=== PATIENT | female | born 1930 | race African-American/Black ===

== ENCOUNTER 2018-03-15 05:35 | Inpatient (IN) ==
[2018-03-15] MEDS ORDERED: ONDANSETRON 4 MG/2 ML VIAL ONE (06:03)
[2018-03-15] MEDS ORDERED: ONDANSETRON 4 MG/2 ML VIAL IV STA (06:07)
[2018-03-15] MEDS ORDERED: PANTOPRAZOLE 40 MG VIAL IV STA (06:19)
[2018-03-15] MEDS ORDERED: ONDANSETRON 4 MG/2 ML VIAL IV PRN (06:19)
[2018-03-15] MEDS ORDERED: PANTOPRAZOLE 40 MG VIAL IV ONE (06:22)
[2018-03-15 06:26] LABS: Basophils % 0.5 % (0.0-0.8); Eosinophils # 0.1 10*3/uL (0.0-0.87); Eosinophils % 1.1 % (0.00-10.9); Hematocrit 34.3 VOL% (35.7-47.0); Hemoglobin 11.3 GM/DL (12.0-16.0); Immature Granulocytes % 0.3 %; Immature Granulocytes Absolute 0.03 #; Lymphocytes # 1.4 10*3/uL (1.4-4.0); Lymphocytes % 15.6 % (21.3-54.2); Mean Corpuscular HGB Conc 32.9 GM/DL (32-36); Mean Corpuscular Hemoglobin 32 PG (27-34); Mean Corpuscular Volume 97.4 FL (87-102); Mean Platelet Volume 10.6 FL (9.6-12.0); Monocytes # 0.4 10*3/uL (0.11-0.8); Monocytes % 4.8 % (1.7-12.7); Neutrophils # 6.8 10*3/uL (1.4-7.4); Neutrophils % 77.7 % (38.7-73.9); PT Patient Result 10.3 SECS; Partial Thromboplastin Time 25.9 SECS (0-40); Platelet Count 122 T/CUMM (130-400); Red Blood Count 3.52 MC/CUMM (3.8-5.5); Red Cell Distribution Width 13.1 % (9.3-17.3); White Blood Count 8.7 T/CUMM (4-12)
[2018-03-15 06:36] LABS: Alanine Aminotransferase 13 U/L (13-56); Albumin 3.6 G/DL (3.4-5.0); Alkaline Phosphatase 83 U/L (45-117); Aspartate Amino Transferase 9 U/L (0-37); Blood Urea Nitrogen 26 MG/DL (7-18); Calcium 9.2 MG/DL (8.5-10.1); Glucose 173 MG/DL (74-106); Osmolality,Calculated 283.7 MOS/KG (273-304); Potassium 3.4 MMOL/L (3.5-5.1); Sodium 138 MMOL/L (136-145); Troponin I Only < 0.015 NG/ML (0.00-0.045)
[2018-03-15] MEDS ORDERED: LEVOFLOXACIN INJ 500 MG in PREMIX 1 EACH IV ONE (11:30)
[2018-03-15] MEDS: SODIUM CHLORIDE 0.9% 1,000 ML IV SCH (11:43)
[2018-03-15] MEDS: metroNIDAZOLE 500 MG TABLET PO SCH ×2 (11:44→20:33)
[2018-03-15 12:02] LABS: Apearance,Urine Slightly Hazy (Clear); Bacteria,Urine Occasional /HPF (Few); Bilirubin,Urine Negative (Negative); Blood, Urine Small mg/dL (Negative); Glucose,Urine (UA) Negative (Negative); Hyaline Casts,Urine 4 /LPF (0-3); Ketones,Urine Negative (Negative); Nitrite,Urine Negative (Negative); Protein,Urine Negative; RBC,Urine 3 /HPF (0-4); Squamous Epithelial Cell,Urine Occasional /HPF (0-10); Uric Acid Crystals,Urine Occasional /HPF (<1); Urine Color Yellow (Yellow); Urine Specific Gravity 1.016 (1.001-1.035); Urine Urobilinogen < 2.0 EU/DL (0.2-1.0); WBC,Urine 3 /HPF (0-6)
[2018-03-15] MEDS: ACETAMINOPHEN 325 MG TABLET PO PRN (12:58)
[2018-03-15] MEDS: CITALOPRAM 20 MG TABLET PO SCH (20:33)
[2018-03-15] MEDS: ZALEPLON 5 MG CAPSULE PO SCH (20:33)
[2018-03-15] MEDS: ALPRAZolam 0.5 MG TABLET PO SCH (20:33)
[2018-03-15] MEDS: DOCUSATE SODIUM 100 MG CAPSULE PO SCH (20:33)
[2018-03-15] MEDS: SODIUM CHLOR 0.45% KCL 20 MEQ 20 MEQ/1,000 ML BAG IV SCH (20:39)
[2018-03-15] MEDS: HYDROmorphone 2 MG/1 ML VIAL IV PRN (20:40)
[2018-03-15] MEDS: INSULIN LISPRO 100 UNIT/ML SUBCUT SCH (21:00)
[2018-03-16] MEDS: HYDROmorphone 2 MG/1 ML VIAL IV PRN ×2 (00:40→09:47)
[2018-03-16] MEDS: SODIUM CHLORIDE 0.9% 1,000 ML IV SCH (02:14)
[2018-03-16] MEDS: ONDANSETRON 4 MG/2 ML VIAL IV PRN ×3 (02:18→23:57)
[2018-03-16] MEDS: metroNIDAZOLE 500 MG TABLET PO SCH ×3 (04:00→18:43)
[2018-03-16 05:56] LABS: Basophils % 0.4 % (0.0-0.8); Eosinophils % 0.3 % (0.00-10.9); Hematocrit 30.1 VOL% (35.7-47.0); Hemoglobin 9.9 GM/DL (12.0-16.0); Immature Granulocytes % 0.3 %; Immature Granulocytes Absolute 0.02 #; Lymphocytes # 0.9 10*3/uL (1.4-4.0); Lymphocytes % 13.7 % (21.3-54.2); Mean Corpuscular HGB Conc 32.9 GM/DL (32-36); Mean Corpuscular Hemoglobin 32 PG (27-34); Mean Platelet Volume 10.8 FL (9.6-12.0); Monocytes # 0.4 10*3/uL (0.11-0.8); Monocytes % 5.4 % (1.7-12.7); Neutrophils # 5.4 10*3/uL (1.4-7.4); Neutrophils % 79.9 % (38.7-73.9); Platelet Count 104 T/CUMM (130-400); Red Blood Count 3.07 MC/CUMM (3.8-5.5); Red Cell Distribution Width 13.1 % (9.3-17.3); White Blood Count 6.7 T/CUMM (4-12)
[2018-03-16 06:26] LABS: Albumin 3.3 G/DL (3.4-5.0); Bilirubin,Total 0.9 MG/DL (0.2-1.0); Calcium 8.4 MG/DL (8.5-10.1); Osmolality,Calculated 279.5 MOS/KG (273-304); Potassium 4.1 MMOL/L (3.5-5.1); Risk Ratio 3.47; Thyroid Stimulating Hormone 1.56 uIU/ml (0.358-3.74)
[2018-03-16 07:01] LABS: Sedimentation Rate-Westergren 32 MM/HR (0-30)
[2018-03-16] MEDS: SODIUM CHLOR 0.45% KCL 20 MEQ 20 MEQ/1,000 ML BAG IV SCH (07:03)
[2018-03-16] MEDS ORDERED: LEVOFLOXACIN INJ 250 MG in PREMIX 1 EACH IV SCH (09:00)
[2018-03-16] MEDS: LEVOFLOXACIN INJ 500 MG in PREMIX 1 EACH IV SCH (09:50)
[2018-03-16] MEDS: OLMESARTAN 20 MG TABLET PO SCH (09:50)
[2018-03-16] MEDS: hydroCHLOROthiazide 12.5 MG CAPSULE PO SCH (09:50)
[2018-03-16] MEDS: PANTOPRAZOLE 40 MG TABLET PO SCH (09:50)
[2018-03-16] MEDS: DOCUSATE SODIUM 100 MG CAPSULE PO SCH ×2 (09:50→20:38)
[2018-03-16] MEDS: INSULIN LISPRO 100 UNIT/ML SUBCUT SCH ×4 (10:01→22:06)
[2018-03-16] MEDS: ALPRAZolam 0.5 MG TABLET PO SCH ×2 (10:05→20:38)
[2018-03-16] MEDS: ASPIRIN EC 81 MG TABLET PO SCH (14:45)
[2018-03-16] MEDS: MAGNESIUM SULF IV SCH (17:08)
[2018-03-16] MEDS: POTASSIUM CHLORIDE IV SCH (17:08)
[2018-03-16] MEDS: [UNRECOGNIZED DRUG - OTHER] IV SCH (17:08)
[2018-03-16] MEDS ORDERED: CLINDAMYCIN INJ 900 MG in PREMIX 1 EACH IV ONE (17:23)
[2018-03-16] MEDS: ZALEPLON 5 MG CAPSULE PO SCH (20:38)
[2018-03-16] MEDS: CITALOPRAM 20 MG TABLET PO SCH (20:38)
[2018-03-17] MEDS: metroNIDAZOLE 500 MG TABLET PO SCH ×3 (02:58→18:49)
[2018-03-17] MEDS: POTASSIUM CHLORIDE IV SCH ×3 (03:19→20:57)
[2018-03-17] MEDS: [UNRECOGNIZED DRUG - OTHER] IV SCH ×3 (03:19→20:57)
[2018-03-17] MEDS: MAGNESIUM SULF IV SCH ×3 (03:19→20:57)
[2018-03-17] MEDS: ONDANSETRON 4 MG/2 ML VIAL IV PRN ×3 (04:02→20:58)
[2018-03-17] MEDS ORDERED: FAMOTIDINE 20 MG TABLET PO ONE (05:39)
[2018-03-17 05:42] LABS: Basophils % 0.3 % (0.0-0.8); Eosinophils % 0.1 % (0.00-10.9); Hematocrit 30.7 VOL% (35.7-47.0); Hemoglobin 10.4 GM/DL (12.0-16.0); Immature Granulocytes % 0.4 %; Immature Granulocytes Absolute 0.03 #; Lymphocytes # 0.8 10*3/uL (1.4-4.0); Mean Corpuscular HGB Conc 33.9 GM/DL (32-36); Mean Corpuscular Hemoglobin 32 PG (27-34); Mean Corpuscular Volume 93.3 FL (87-102); Mean Platelet Volume 11.5 FL (9.6-12.0); Monocytes # 0.4 10*3/uL (0.11-0.8); Monocytes % 4.4 % (1.7-12.7); Neutrophils # 6.7 10*3/uL (1.4-7.4); Neutrophils % 84.8 % (38.7-73.9); Platelet Count 118 T/CUMM (130-400); Red Blood Count 3.29 MC/CUMM (3.8-5.5); White Blood Count 7.9 T/CUMM (4-12)
[2018-03-17] MEDS ORDERED: DIAZEPAM 5 MG TABLET PO ONE (06:00)
[2018-03-17 06:11] LABS: Calcium 8.4 MG/DL (8.5-10.1); Osmolality,Calculated 272.1 MOS/KG (273-304); Potassium 4.7 MMOL/L (3.5-5.1)
[2018-03-17] MEDS: INSULIN LISPRO 100 UNIT/ML SUBCUT SCH ×4 (08:08→20:53)
[2018-03-17] MEDS: LEVOFLOXACIN INJ 500 MG in PREMIX 1 EACH IV SCH (08:35)
[2018-03-17] MEDS: CARVEDILOL 3.125 MG TABLET PO SCH ×2 (08:37→18:49)
[2018-03-17] MEDS: hydroCHLOROthiazide 12.5 MG CAPSULE PO SCH (08:37)
[2018-03-17] MEDS: OLMESARTAN 20 MG TABLET PO SCH (08:37)
[2018-03-17] MEDS ORDERED: CLINDAMYCIN INJ 900 MG in PREMIX 1 EACH IV ONE (09:00)
[2018-03-17] MEDS: LACTATED RINGERS 1,000 ML IV SCH ×2 (10:49→14:10)
[2018-03-17] MEDS ORDERED: LIDOCAINE 1%/EPI INJ 20 ML VIAL ONE (11:33)
[2018-03-17] MEDS ORDERED: TISSUE ADHESIVE 1 EACH APPLICATOR TOP ONE (11:34)
[2018-03-17] MEDS: ASPIRIN EC 81 MG TABLET PO SCH (11:52)
[2018-03-17] MEDS: ALPRAZolam 0.5 MG TABLET PO SCH ×2 (11:53→20:52)
[2018-03-17] MEDS: DOCUSATE SODIUM 100 MG CAPSULE PO SCH ×2 (11:53→20:52)
[2018-03-17] MEDS: PANTOPRAZOLE 40 MG TABLET PO SCH (11:53)
[2018-03-17] MEDS ORDERED: TRIAMCINOLONE ACETONIDE 40 MG/1 ML VIAL ONE (12:17)
[2018-03-17] MEDS ORDERED: PROPOFOL 200 MG/20 ML VIAL IV ONE (13:45)
[2018-03-17] MEDS ORDERED: SEVOFLURANE 1 UNIT/15 MINUTE INH ONE (13:46)
[2018-03-17] MEDS ORDERED: NEOSTIGMINE 10 MG/10 ML VIAL ONE (13:47)
[2018-03-17] MEDS ORDERED: fentaNYL 100 MCG/2 ML VIAL ONE (13:47)
[2018-03-17] MEDS ORDERED: ONDANSETRON 4 MG/2 ML VIAL ONE ×2 (13:47→13:57)
[2018-03-17] MEDS ORDERED: SODIUM CHLORIDE 0.9% 1,000 ML IV ONE (13:47)
[2018-03-17] MEDS ORDERED: KETOROLAC 30 MG/1 ML VIAL ONE (13:47)
[2018-03-17] MEDS ORDERED: ROCURONIUM 100 MG/10 ML VIAL IV ONE (13:47)
[2018-03-17] MEDS ORDERED: GLYCOPYRROLATE 0.4 MG/2 ML VIAL ONE (13:47)
[2018-03-17] MEDS ORDERED: PHENYLEPHRINE 10 MG/1 ML VIAL IV ONE (13:47)
[2018-03-17] MEDS ORDERED: ONDANSETRON 4 MG/2 ML VIAL IV PRN (13:55)
[2018-03-17] MEDS ORDERED: HYDROmorphone 2 MG/1 ML VIAL ONE (13:57)
[2018-03-17] MEDS: HYDROmorphone 2 MG/1 ML VIAL IV PRN ×3 (14:00→14:20)
[2018-03-17] MEDS: ZALEPLON 5 MG CAPSULE PO SCH (20:52)
[2018-03-17] MEDS: CITALOPRAM 20 MG TABLET PO SCH (20:52)
[2018-03-18 05:47] LABS: Basophils % 0.1 % (0.0-0.8); Hematocrit 32.3 VOL% (35.7-47.0); Hemoglobin 10.7 GM/DL (12.0-16.0); Immature Granulocytes % 0.6 %; Immature Granulocytes Absolute 0.06 #; Lymphocytes # 0.5 10*3/uL (1.4-4.0); Lymphocytes % 4.5 % (21.3-54.2); Mean Corpuscular HGB Conc 33.1 GM/DL (32-36); Mean Corpuscular Hemoglobin 32 PG (27-34); Mean Corpuscular Volume 95.8 FL (87-102); Mean Platelet Volume 11.6 FL (9.6-12.0); Monocytes # 0.6 10*3/uL (0.11-0.8); Monocytes % 5.7 % (1.7-12.7); Neutrophils # 9.5 10*3/uL (1.4-7.4); Neutrophils % 89.1 % (38.7-73.9); Platelet Count 123 T/CUMM (130-400); Red Blood Count 3.37 MC/CUMM (3.8-5.5); Red Cell Distribution Width 13.1 % (9.3-17.3); White Blood Count 10.7 T/CUMM (4-12)
[2018-03-18 06:12] LABS: Calcium 8.6 MG/DL (8.5-10.1); Osmolality,Calculated 262.8 MOS/KG (273-304); Potassium 5.1 MMOL/L (3.5-5.1)
[2018-03-18 06:25] LABS: Lymphocytes 3 % (20-55); Segmented Neutrophils 93 % (50-85); Total Cells Counted 100
[2018-03-18 06:26] LABS: Platelet Estimate Decreased; Polychromasia Slight
[2018-03-18] MEDS: [UNRECOGNIZED DRUG - OTHER] IV SCH (06:28)
[2018-03-18] MEDS: POTASSIUM CHLORIDE IV SCH (06:28)
[2018-03-18] MEDS: MAGNESIUM SULF IV SCH (06:28)
[2018-03-18] MEDS: metroNIDAZOLE 500 MG TABLET PO SCH (06:28)
[2018-03-18] MEDS: INSULIN LISPRO 100 UNIT/ML SUBCUT SCH ×3 (07:34→21:18)
[2018-03-18] MEDS: ONDANSETRON 4 MG/2 ML VIAL IV PRN ×2 (08:07→20:42)
[2018-03-18] MEDS: CARVEDILOL 3.125 MG TABLET PO SCH ×2 (08:09→16:44)
[2018-03-18] MEDS: PANTOPRAZOLE 40 MG TABLET PO SCH (08:09)
[2018-03-18] MEDS: hydroCHLOROthiazide 12.5 MG CAPSULE PO SCH (08:09)
[2018-03-18] MEDS: DOCUSATE SODIUM 100 MG CAPSULE PO SCH ×2 (08:09→21:18)
[2018-03-18] MEDS: OLMESARTAN 20 MG TABLET PO SCH (08:09)
[2018-03-18] MEDS: ALPRAZolam 0.5 MG TABLET PO SCH ×2 (08:09→21:18)
[2018-03-18] MEDS: ASPIRIN EC 81 MG TABLET PO SCH (08:09)
[2018-03-18] MEDS: LEVOFLOXACIN INJ 500 MG in PREMIX 1 EACH IV SCH (16:44)
[2018-03-18] MEDS: SODIUM CHLORIDE 0.9% 1,000 ML IV SCH (18:22)
[2018-03-18] MEDS: CITALOPRAM 20 MG TABLET PO SCH (21:18)
[2018-03-18] MEDS: ZALEPLON 5 MG CAPSULE PO SCH (21:18)
[2018-03-18] MEDS: HYDROmorphone 2 MG/1 ML VIAL IV PRN (23:27)
[2018-03-19] MEDS: SODIUM CHLORIDE 0.9% 1,000 ML IV SCH ×3 (02:48→21:42)
[2018-03-19 05:23] LABS: Basophils % 0.1 % (0.0-0.8); Eosinophils % 0.1 % (0.00-10.9); Hematocrit 29.6 VOL% (35.7-47.0); Hemoglobin 10.5 GM/DL (12.0-16.0); Immature Granulocytes % 0.4 %; Immature Granulocytes Absolute 0.04 #; Lymphocytes # 0.8 10*3/uL (1.4-4.0); Lymphocytes % 6.9 % (21.3-54.2); Mean Corpuscular HGB Conc 35.5 GM/DL (32-36); Mean Corpuscular Hemoglobin 33 PG (27-34); Mean Corpuscular Volume 92.2 FL (87-102); Mean Platelet Volume 11.1 FL (9.6-12.0); Monocytes # 0.8 10*3/uL (0.11-0.8); Monocytes % 7.1 % (1.7-12.7); Neutrophils # 9.4 10*3/uL (1.4-7.4); Neutrophils % 85.4 % (38.7-73.9); Platelet Count 129 T/CUMM (130-400); Red Blood Count 3.21 MC/CUMM (3.8-5.5); White Blood Count 11.1 T/CUMM (4-12)
[2018-03-19 05:58] LABS: Calcium 8.1 MG/DL (8.5-10.1); Osmolality,Calculated 262.1 MOS/KG (273-304); Potassium 5.2 MMOL/L (3.5-5.1)
[2018-03-19] MEDS: ALPRAZolam 0.5 MG TABLET PO SCH ×2 (08:26→21:04)
[2018-03-19] MEDS: hydroCHLOROthiazide 12.5 MG CAPSULE PO SCH (08:26)
[2018-03-19] MEDS: DOCUSATE SODIUM 100 MG CAPSULE PO SCH ×2 (08:26→21:04)
[2018-03-19] MEDS: OLMESARTAN 20 MG TABLET PO SCH (08:26)
[2018-03-19] MEDS: LEVOFLOXACIN INJ 500 MG in PREMIX 1 EACH IV SCH (08:26)
[2018-03-19] MEDS: PANTOPRAZOLE 40 MG TABLET PO SCH (08:26)
[2018-03-19] MEDS: ASPIRIN EC 81 MG TABLET PO SCH (08:26)
[2018-03-19] MEDS: INSULIN LISPRO 100 UNIT/ML SUBCUT SCH ×4 (08:26→21:04)
[2018-03-19] MEDS: CARVEDILOL 3.125 MG TABLET PO SCH ×2 (08:26→16:10)
[2018-03-19] MEDS: CITALOPRAM 20 MG TABLET PO SCH (21:04)
[2018-03-19] MEDS: ACETAMINOPHEN 325 MG TABLET PO PRN (21:04)
[2018-03-19] MEDS: ZALEPLON 5 MG CAPSULE PO SCH (21:04)
[2018-03-19] MEDS: ONDANSETRON 4 MG/2 ML VIAL IV PRN (21:09)
[2018-03-20] MEDS: SODIUM CHLORIDE 0.9% 1,000 ML IV SCH ×2 (05:42→17:10)
[2018-03-20 06:50] LABS: Basophils % 0.1 % (0.0-0.8); Eosinophils % 0.5 % (0.00-10.9); Hematocrit 29.7 VOL% (35.7-47.0); Hemoglobin 10.4 GM/DL (12.0-16.0); Immature Granulocytes % 0.6 %; Immature Granulocytes Absolute 0.05 #; Lymphocytes # 0.7 10*3/uL (1.4-4.0); Lymphocytes % 8.5 % (21.3-54.2); Mean Corpuscular Hemoglobin 32 PG (27-34); Mean Corpuscular Volume 92.5 FL (87-102); Mean Platelet Volume 11.4 FL (9.6-12.0); Monocytes # 0.6 10*3/uL (0.11-0.8); Monocytes % 6.7 % (1.7-12.7); Neutrophils # 7.1 10*3/uL (1.4-7.4); Neutrophils % 83.6 % (38.7-73.9); Platelet Count 149 T/CUMM (130-400); Red Blood Count 3.21 MC/CUMM (3.8-5.5); Red Cell Distribution Width 13.3 % (9.3-17.3); White Blood Count 8.5 T/CUMM (4-12)
[2018-03-20 07:23] LABS: Calcium 8.1 MG/DL (8.5-10.1); Osmolality,Calculated 267.5 MOS/KG (273-304); Potassium 4.5 MMOL/L (3.5-5.1)
[2018-03-20] MEDS: INSULIN LISPRO 100 UNIT/ML SUBCUT SCH ×4 (08:05→21:31)
[2018-03-20] MEDS: CARVEDILOL 3.125 MG TABLET PO SCH ×2 (08:58→16:46)
[2018-03-20] MEDS: DOCUSATE SODIUM 100 MG CAPSULE PO SCH ×2 (08:58→21:31)
[2018-03-20] MEDS: LEVOFLOXACIN INJ 500 MG in PREMIX 1 EACH IV SCH (08:59)
[2018-03-20] MEDS: OLMESARTAN 20 MG TABLET PO SCH (08:59)
[2018-03-20] MEDS: hydroCHLOROthiazide 12.5 MG CAPSULE PO SCH (08:59)
[2018-03-20] MEDS: ASPIRIN EC 81 MG TABLET PO SCH (08:59)
[2018-03-20] MEDS: PANTOPRAZOLE 40 MG TABLET PO SCH (08:59)
[2018-03-20] MEDS: ALPRAZolam 0.5 MG TABLET PO SCH ×2 (08:59→21:31)
[2018-03-20] MEDS: ONDANSETRON 4 MG/2 ML VIAL IV PRN (15:48)
[2018-03-20] MEDS: CITALOPRAM 20 MG TABLET PO SCH (21:31)
[2018-03-20] MEDS: ZALEPLON 5 MG CAPSULE PO SCH (21:31)
[2018-03-21] MEDS: SODIUM CHLORIDE 0.9% 1,000 ML IV SCH ×2 (01:10→20:57)
[2018-03-21 05:04] LABS: Basophils % 0.1 % (0.0-0.8); Eosinophils # 0.1 10*3/uL (0.0-0.87); Eosinophils % 0.8 % (0.00-10.9); Hematocrit 28.8 VOL% (35.7-47.0); Hemoglobin 9.7 GM/DL (12.0-16.0); Immature Granulocytes % 0.4 %; Immature Granulocytes Absolute 0.03 #; Lymphocytes # 0.9 10*3/uL (1.4-4.0); Mean Corpuscular HGB Conc 33.7 GM/DL (32-36); Mean Corpuscular Hemoglobin 32 PG (27-34); Mean Corpuscular Volume 94.7 FL (87-102); Mean Platelet Volume 10.9 FL (9.6-12.0); Monocytes # 0.5 10*3/uL (0.11-0.8); Monocytes % 7.1 % (1.7-12.7); Neutrophils # 6.1 10*3/uL (1.4-7.4); Neutrophils % 79.6 % (38.7-73.9); Platelet Count 143 T/CUMM (130-400); Red Blood Count 3.04 MC/CUMM (3.8-5.5); Red Cell Distribution Width 13.5 % (9.3-17.3); White Blood Count 7.6 T/CUMM (4-12)
[2018-03-21 05:38] LABS: Calcium 8.2 MG/DL (8.5-10.1); Osmolality,Calculated 271.1 MOS/KG (273-304); Potassium 4.3 MMOL/L (3.5-5.1)
[2018-03-21] MEDS: hydroCHLOROthiazide 12.5 MG CAPSULE PO SCH (09:39)
[2018-03-21] MEDS: CARVEDILOL 3.125 MG TABLET PO SCH ×2 (09:39→17:12)
[2018-03-21] MEDS: DOCUSATE SODIUM 100 MG CAPSULE PO SCH ×2 (09:39→20:55)
[2018-03-21] MEDS: INSULIN LISPRO 100 UNIT/ML SUBCUT SCH ×4 (09:39→21:07)
[2018-03-21] MEDS: OLMESARTAN 20 MG TABLET PO SCH (09:39)
[2018-03-21] MEDS: ALPRAZolam 0.5 MG TABLET PO SCH ×2 (09:39→20:55)
[2018-03-21] MEDS: LEVOFLOXACIN INJ 500 MG in PREMIX 1 EACH IV SCH (09:40)
[2018-03-21] MEDS: PANTOPRAZOLE 40 MG TABLET PO SCH (09:40)
[2018-03-21] MEDS: ASPIRIN EC 81 MG TABLET PO SCH (09:40)
[2018-03-21] MEDS: CITALOPRAM 20 MG TABLET PO SCH (20:55)
[2018-03-21] MEDS: ZALEPLON 5 MG CAPSULE PO SCH (20:55)
[2018-03-21] MEDS ORDERED: ENOXAPARIN 40 MG/0.4 ML SYRINGE SUBCUT SCH (21:00)
[2018-03-22] MEDS: OLMESARTAN 20 MG TABLET PO SCH (09:54)
[2018-03-22] MEDS: hydroCHLOROthiazide 12.5 MG CAPSULE PO SCH (09:54)
[2018-03-22] MEDS: CARVEDILOL 3.125 MG TABLET PO SCH (09:54)
[2018-03-22] MEDS: ASPIRIN EC 81 MG TABLET PO SCH (09:54)
[2018-03-22] MEDS: PANTOPRAZOLE 40 MG TABLET PO SCH (09:54)
[2018-03-22] MEDS: ALPRAZolam 0.5 MG TABLET PO SCH (09:54)
[2018-03-22] MEDS: DOCUSATE SODIUM 100 MG CAPSULE PO SCH (09:54)
[2018-03-22] MEDS: LEVOFLOXACIN INJ 500 MG in PREMIX 1 EACH IV SCH (09:55)
[2018-03-22 12:29] VITALS: BP 173/86
== END 2018-03-22 13:50 | disposition home health service (06) | DRG 418 ==
LOC: EDUNIT# → N.ED 05:35 → N.EDINP 10:02 → N.2E 10:17
PROVIDERS: ADMIT Family Medicine; ATTEND Family Medicine
PROC: LAPCHOL (2018-03-17 11:45)

== ENCOUNTER 2018-04-06 12:53 | Inpatient (IN) ==
[2018-04-06] MEDS ORDERED: SODIUM CHLORIDE 0.9% 1,000 ML IV STA (13:31)
[2018-04-06] MEDS ORDERED: ONDANSETRON 4 MG/2 ML VIAL IV STA ×2 (13:31→14:05)
[2018-04-06 13:45] LABS: White Blood Count 6.1 T/CUMM (4-12)
[2018-04-06 13:46] LABS: Basophils % 0.3 % (0.0-0.8); Eosinophils # 0.1 10*3/uL (0.0-0.87); Hematocrit 34.8 VOL% (35.7-47.0); Hemoglobin 11.4 GM/DL (12.0-16.0); Immature Granulocytes % 0.3 %; Immature Granulocytes Absolute 0.02 #; Lymphocytes # 1.4 10*3/uL (1.4-4.0); Lymphocytes % 22.5 % (21.3-54.2); Mean Corpuscular HGB Conc 32.8 GM/DL (32-36); Mean Corpuscular Hemoglobin 32 PG (27-34); Mean Corpuscular Volume 98.6 FL (87-102); Mean Platelet Volume 10.2 FL (9.6-12.0); Monocytes # 0.4 10*3/uL (0.11-0.8); Monocytes % 6.1 % (1.7-12.7); Neutrophils # 4.2 10*3/uL (1.4-7.4); Neutrophils % 68.8 % (38.7-73.9); Platelet Count 136 T/CUMM (130-400); Red Blood Count 3.53 MC/CUMM (3.8-5.5); Red Cell Distribution Width 14.9 % (9.3-17.3)
[2018-04-06] MEDS ORDERED: fentaNYL 100 MCG/2 ML VIAL IV STA (14:05)
[2018-04-06 14:07] LABS: Alanine Aminotransferase 16 U/L (13-56); Albumin 3.7 G/DL (3.4-5.0); Alkaline Phosphatase 69 U/L (45-117); Amylase 39 U/L (25-115); Aspartate Amino Transferase 15 U/L (0-37); Blood Urea Nitrogen 15 MG/DL (7-18); Calcium 9.7 MG/DL (8.5-10.1); Glucose 106 MG/DL (74-106); Osmolality,Calculated 279.4 MOS/KG (273-304); Potassium 3.8 MMOL/L (3.5-5.1); Sodium 140 MMOL/L (136-145); Total Protein 7.2 G/DL (6.4-8.3); Troponin I Only < 0.015 NG/ML (0.00-0.045)
[2018-04-06] MEDS ORDERED: fentaNYL 100 MCG/2 ML VIAL ONE (14:07)
[2018-04-06 15:00] LABS: Apearance,Urine CLEAR (Clear); Bilirubin,Urine Negative (Negative); Blood, Urine Negative (Negative); Glucose,Urine (UA) Negative (Negative); Ketones,Urine Negative (Negative); Nitrite,Urine Negative (Negative); Protein,Urine Negative; RBC,Urine 2 /HPF (0-4); Squamous Epithelial Cell,Urine Occasional /HPF (0-10); Urine Color Yellow (Yellow); Urine Specific Gravity 1.011 (1.001-1.035); Urine Urobilinogen < 2.0 EU/DL (0.2-1.0); WBC,Urine 1 /HPF (0-6)
[2018-04-06] MEDS ORDERED: methylPREDNISolone SOD SUC 125 MG/2 ML VIAL IV STA (15:47)
[2018-04-06] MEDS ORDERED: diphenhydrAMINE 50 MG/1 ML VIAL IV STA (15:47)
[2018-04-06] MEDS ORDERED: KETOROLAC 30 MG/1 ML VIAL IV STA (17:30)
[2018-04-06 22:06] LABS: Lactic Acid 3.7 MMOL/L (0.4-2.0)
[2018-04-06] MEDS ORDERED: ZALEPLON 5 MG CAPSULE PO PRN (22:16)
[2018-04-06] MEDS ORDERED: ONDANSETRON 4 MG/2 ML VIAL IV PRN (22:16)
[2018-04-06] MEDS ORDERED: MORPHINE 4 MG/1 ML VIAL IV PRN (22:16)
[2018-04-06] MEDS ORDERED: LACTULOSE 20 GM/30 ML UDCUP PO PRN (22:16)
[2018-04-06] MEDS ORDERED: ACETAMINOPHEN 325 MG TABLET PO PRN (22:16)
[2018-04-06] MEDS: ALPRAZolam 0.5 MG TABLET PO SCH (22:37)
[2018-04-06] MEDS: DOCUSATE SODIUM 100 MG CAPSULE PO SCH (22:37)
[2018-04-06] MEDS: SODIUM CHLORIDE 0.9% 1,000 ML IV SCH (22:42)
[2018-04-07 05:59] LABS: Hematocrit 32.3 VOL% (35.7-47.0); Hemoglobin 10.8 GM/DL (12.0-16.0); Immature Granulocytes % 0.6 %; Immature Granulocytes Absolute 0.04 #; Lymphocytes # 0.5 10*3/uL (1.4-4.0); Lymphocytes % 7.4 % (21.3-54.2); Mean Corpuscular HGB Conc 33.4 GM/DL (32-36); Mean Corpuscular Hemoglobin 33 PG (27-34); Mean Corpuscular Volume 98.8 FL (87-102); Mean Platelet Volume 10.7 FL (9.6-12.0); Monocytes # 0.1 10*3/uL (0.11-0.8); Monocytes % 1.7 % (1.7-12.7); Neutrophils # 5.8 10*3/uL (1.4-7.4); Neutrophils % 90.3 % (38.7-73.9); Platelet Count 144 T/CUMM (130-400); Red Blood Count 3.27 MC/CUMM (3.8-5.5); Red Cell Distribution Width 14.8 % (9.3-17.3); White Blood Count 6.4 T/CUMM (4-12)
[2018-04-07 06:45] LABS: Albumin 3.2 G/DL (3.4-5.0); Bilirubin,Total 1.6 MG/DL (0.2-1.0); Calcium 9.1 MG/DL (8.5-10.1); Osmolality,Calculated 287.3 MOS/KG (273-304); Potassium 4.4 MMOL/L (3.5-5.1); Risk Ratio 3.27; Total Protein 6.4 G/DL (6.4-8.3); VLDL CHOLESTEROL 9.2 MG/DL
[2018-04-07] MEDS: DOCUSATE SODIUM 100 MG CAPSULE PO SCH ×2 (08:51→22:50)
[2018-04-07] MEDS: hydroCHLOROthiazide 12.5 MG CAPSULE PO SCH (08:51)
[2018-04-07] MEDS: ALPRAZolam 0.5 MG TABLET PO SCH ×2 (08:51→22:49)
[2018-04-07] MEDS: MELOXICAM 7.5 MG TABLET PO SCH (08:51)
[2018-04-07] MEDS: FUROSEMIDE 40 MG TABLET PO SCH (08:51)
[2018-04-07] MEDS: PANTOPRAZOLE 40 MG TABLET PO SCH (08:51)
[2018-04-07] MEDS: POTASSIUM CHLORIDE 10 MEQ TABLET PO SCH (08:51)
[2018-04-07] MEDS: ASPIRIN EC 81 MG TABLET PO SCH (08:51)
[2018-04-07] MEDS: OLMESARTAN 20 MG TABLET PO SCH (08:51)
[2018-04-07] MEDS: INSULIN LISPRO 100 UNIT/ML SUBCUT SCH ×3 (12:55→22:32)
[2018-04-07] MEDS: SODIUM CHLORIDE 0.9% 1,000 ML IV SCH (16:35)
[2018-04-08 06:19] LABS: Basophils % 0.4 % (0.0-0.8); Eosinophils # 0.1 10*3/uL (0.0-0.87); Eosinophils % 1.4 % (0.00-10.9); Hematocrit 29.1 VOL% (35.7-47.0); Hemoglobin 9.3 GM/DL (12.0-16.0); Immature Granulocytes % 0.5 %; Immature Granulocytes Absolute 0.04 #; Lymphocytes # 2.3 10*3/uL (1.4-4.0); Lymphocytes % 31.8 % (21.3-54.2); Mean Corpuscular Hemoglobin 32 PG (27-34); Mean Platelet Volume 10.8 FL (9.6-12.0); Monocytes # 0.4 10*3/uL (0.11-0.8); Monocytes % 4.9 % (1.7-12.7); Neutrophils # 4.5 10*3/uL (1.4-7.4); Platelet Count 123 T/CUMM (130-400); Red Blood Count 2.88 MC/CUMM (3.8-5.5); Red Cell Distribution Width 14.9 % (9.3-17.3); White Blood Count 7.3 T/CUMM (4-12)
[2018-04-08 07:03] LABS: Bilirubin,Total 0.9 MG/DL (0.2-1.0); Calcium 8.6 MG/DL (8.5-10.1); Osmolality,Calculated 290.8 MOS/KG (273-304); Thyroid Stimulating Hormone 1.2 uIU/ml (0.358-3.74); Total Protein 5.9 G/DL (6.4-8.3)
[2018-04-08] MEDS: INSULIN LISPRO 100 UNIT/ML SUBCUT SCH ×2 (10:02→12:33)
[2018-04-08] MEDS: OLMESARTAN 20 MG TABLET PO SCH (10:02)
[2018-04-08] MEDS: PANTOPRAZOLE 40 MG TABLET PO SCH (10:02)
[2018-04-08] MEDS: MELOXICAM 7.5 MG TABLET PO SCH (10:02)
[2018-04-08] MEDS: ALPRAZolam 0.5 MG TABLET PO SCH (10:03)
[2018-04-08] MEDS: hydroCHLOROthiazide 12.5 MG CAPSULE PO SCH (10:03)
[2018-04-08] MEDS: POTASSIUM CHLORIDE 10 MEQ TABLET PO SCH (10:03)
[2018-04-08] MEDS: FUROSEMIDE 40 MG TABLET PO SCH (10:03)
[2018-04-08] MEDS: DOCUSATE SODIUM 100 MG CAPSULE PO SCH (10:03)
[2018-04-08] MEDS: ASPIRIN EC 81 MG TABLET PO SCH (10:03)
[2018-04-08 12:04] VITALS: BP 159/79
== END 2018-04-08 14:50 | disposition home or self-care (01) | DRG 303 ==
LOC: N.ED 12:53 → N.EDINP 17:57 → N.2E 18:42
PROVIDERS: ADMIT Family Medicine; ATTEND Family Medicine

== ENCOUNTER 2018-08-30 15:04 | Inpatient (IN) ==
[2018-08-30] MEDS ORDERED: ASPIRIN 325 MG TABLET PO STA (15:21)
[2018-08-30] MEDS ORDERED: MORPHINE 4 MG/1 ML VIAL IV STA (15:28)
[2018-08-30] MEDS ORDERED: ONDANSETRON 4 MG/2 ML VIAL IV STA (15:28)
[2018-08-30 15:55] LABS: Basophils % 0.3 % (0.0-0.8); Eosinophils # 0.1 10*3/uL (0.0-0.87); Eosinophils % 1.1 % (0.00-10.9); Hematocrit 34.6 VOL% (35.7-47.0); Hemoglobin 11.2 GM/DL (12.0-16.0); Immature Granulocytes % 0.3 %; Immature Granulocytes Absolute 0.02 #; Lymphocytes # 1.5 10*3/uL (1.4-4.0); Lymphocytes % 23.9 % (21.3-54.2); Mean Corpuscular HGB Conc 32.4 GM/DL (32-36); Mean Corpuscular Hemoglobin 32 PG (27-34); Mean Corpuscular Volume 97.2 FL (87-102); Mean Platelet Volume 10.3 FL (9.6-12.0); Monocytes # 0.4 10*3/uL (0.11-0.8); Monocytes % 5.7 % (1.7-12.7); Neutrophils # 4.3 10*3/uL (1.4-7.4); Neutrophils % 68.7 % (38.7-73.9); Platelet Count 155 T/CUMM (130-400); Red Blood Count 3.56 MC/CUMM (3.8-5.5); Red Cell Distribution Width 13.6 % (9.3-17.3); White Blood Count 6.3 T/CUMM (4-12)
[2018-08-30 16:07] LABS: Bilirubin,Total 0.8 MG/DL (0.2-1.0); Calcium 9.5 MG/DL (8.5-10.1); Osmolality,Calculated 276.7 MOS/KG (273-304); Potassium 3.9 MMOL/L (3.5-5.1); Total Protein 7.1 G/DL (6.4-8.3)
[2018-08-30] MEDS ORDERED: CLINDAMYCIN INJ 900 MG in PREMIX 1 EACH IV STA (16:51)
[2018-08-30] MEDS ORDERED: GLUCAGON 1 MG VIAL IM PRN (16:59)
[2018-08-30] MEDS ORDERED: ZALEPLON 5 MG CAPSULE PO PRN (16:59)
[2018-08-30] MEDS ORDERED: ONDANSETRON 4 MG/2 ML VIAL IV PRN (16:59)
[2018-08-30] MEDS ORDERED: DEXTROSE 50% 25 GM/50 ML VIAL IV PRN (16:59)
[2018-08-30] MEDS ORDERED: ACETAMINOPHEN 500 MG TABLET PO PRN (16:59)
[2018-08-30] MEDS: ALPRAZolam 0.5 MG TABLET PO SCH (22:27)
[2018-08-30] MEDS: INSULIN REGULAR 100 UNIT/ML SUBCUT SCH (22:27)
[2018-08-31] MEDS: CLINDAMYCIN INJ 900 MG in PREMIX 1 EACH IV SCH ×2 (00:16→08:13)
[2018-08-31 07:15] LABS: Troponin I 0.018 NG/ML (0.00-0.045)
[2018-08-31] MEDS: FUROSEMIDE 40 MG TABLET PO SCH (08:12)
[2018-08-31] MEDS: PANTOPRAZOLE 40 MG TABLET PO SCH (08:12)
[2018-08-31] MEDS: INSULIN REGULAR 100 UNIT/ML SUBCUT SCH ×3 (08:12→16:09)
[2018-08-31] MEDS: OLMESARTAN 5 MG TABLET PO SCH (08:12)
[2018-08-31] MEDS: ALPRAZolam 0.5 MG TABLET PO SCH ×2 (08:12→20:38)
[2018-08-31] MEDS: LEVOFLOXACIN INJ 500 MG in PREMIX 1 EACH IV SCH (08:43)
[2018-08-31] MEDS: methylPREDNISolone SOD SUC 40 MG/1 ML VIAL IV SCH ×2 (09:10→16:09)
[2018-08-31 09:51] LABS: Apearance,Urine CLEAR (Clear); Bilirubin,Urine Negative (Negative); Blood, Urine Small mg/dL (Negative); Glucose,Urine (UA) Negative (Negative); Ketones,Urine Negative (Negative); Mucus,Urine Occasional /LPF (Occasional); Nitrite,Urine Negative (Negative); Protein,Urine Negative; RBC,Urine <1 /HPF (0-4); Urine Color Yellow (Yellow); Urine Specific Gravity 1.006 (1.001-1.035); Urine Urobilinogen < 2.0 EU/DL (0.2-1.0)
[2018-08-31] MEDS: ASPIRIN EC 325 MG TABLET PO SCH (10:29)
[2018-09-01] MEDS: INSULIN REGULAR 100 UNIT/ML SUBCUT SCH ×5 (03:24→21:06)
[2018-09-01] MEDS: methylPREDNISolone SOD SUC 40 MG/1 ML VIAL IV SCH ×3 (03:26→17:08)
[2018-09-01 06:46] LABS: Basophils % 0.3 % (0.0-0.8); Eosinophils # 0.1 10*3/uL (0.0-0.87); Eosinophils % 1.3 % (0.00-10.9); Hematocrit 35.1 VOL% (35.7-47.0); Hemoglobin 11.5 GM/DL (12.0-16.0); Immature Granulocytes % 0.4 %; Immature Granulocytes Absolute 0.03 #; Lymphocytes # 0.9 10*3/uL (1.4-4.0); Lymphocytes % 13.2 % (21.3-54.2); Mean Corpuscular HGB Conc 32.8 GM/DL (32-36); Mean Corpuscular Hemoglobin 32 PG (27-34); Mean Corpuscular Volume 97.5 FL (87-102); Mean Platelet Volume 10.4 FL (9.6-12.0); Monocytes # 0.2 10*3/uL (0.11-0.8); Monocytes % 2.7 % (1.7-12.7); Neutrophils # 5.9 10*3/uL (1.4-7.4); Neutrophils % 82.1 % (38.7-73.9); Platelet Count 136 T/CUMM (130-400); Red Cell Distribution Width 13.4 % (9.3-17.3); White Blood Count 7.1 T/CUMM (4-12)
[2018-09-01 07:09] LABS: Calcium 8.9 MG/DL (8.5-10.1)
[2018-09-01 07:10] LABS: Osmolality,Calculated 279.7 MOS/KG (273-304); Potassium 4.1 MMOL/L (3.5-5.1); Thyroid Stimulating Hormone 0.922 uIU/ml (0.358-3.74)
[2018-09-01] MEDS ORDERED: MAGNESIUM SULF RIDER 2 GM in PREMIX 1 EACH IV STA (07:37)
[2018-09-01 07:53] LABS: Sedimentation Rate-Westergren 30 MM/HR (0-30)
[2018-09-01] MEDS: FUROSEMIDE 40 MG TABLET PO SCH (08:34)
[2018-09-01] MEDS: ALPRAZolam 0.5 MG TABLET PO SCH ×2 (08:34→21:05)
[2018-09-01] MEDS: PANTOPRAZOLE 40 MG TABLET PO SCH (08:34)
[2018-09-01] MEDS: OLMESARTAN 5 MG TABLET PO SCH (08:34)
[2018-09-01] MEDS: ASPIRIN EC 325 MG TABLET PO SCH (08:34)
[2018-09-01] MEDS: LEVOFLOXACIN INJ 500 MG in PREMIX 1 EACH IV SCH (08:35)
[2018-09-01] MEDS: ENOXAPARIN 40 MG/0.4 ML SYRINGE SUBCUT SCH (11:25)
[2018-09-02] MEDS: methylPREDNISolone SOD SUC 40 MG/1 ML VIAL IV SCH ×3 (01:20→16:25)
[2018-09-02 06:19] LABS: Basophils % 0.1 % (0.0-0.8); Hematocrit 32.8 VOL% (35.7-47.0); Hemoglobin 10.8 GM/DL (12.0-16.0); Immature Granulocytes % 0.6 %; Immature Granulocytes Absolute 0.06 #; Lymphocytes # 0.6 10*3/uL (1.4-4.0); Lymphocytes % 6.4 % (21.3-54.2); Mean Corpuscular HGB Conc 32.9 GM/DL (32-36); Mean Corpuscular Hemoglobin 32 PG (27-34); Mean Corpuscular Volume 96.8 FL (87-102); Mean Platelet Volume 10.7 FL (9.6-12.0); Monocytes # 0.1 10*3/uL (0.11-0.8); Monocytes % 1.5 % (1.7-12.7); Neutrophils # 8.6 10*3/uL (1.4-7.4); Neutrophils % 91.4 % (38.7-73.9); Platelet Count 149 T/CUMM (130-400); Red Blood Count 3.39 MC/CUMM (3.8-5.5); Red Cell Distribution Width 13.4 % (9.3-17.3); White Blood Count 9.4 T/CUMM (4-12)
[2018-09-02 06:32] LABS: Calcium 9.3 MG/DL (8.5-10.1); Osmolality,Calculated 285.5 MOS/KG (273-304); Potassium 4.3 MMOL/L (3.5-5.1)
[2018-09-02 06:46] LABS: Band Neutrophils 12 % (0-10); Lymphocytes 7 % (20-55); Platelet Estimate Adequate; Segmented Neutrophils 81 % (50-85); Total Cells Counted 100
[2018-09-02 06:47] LABS: Anisocytosis Slight
[2018-09-02] MEDS: INSULIN REGULAR 100 UNIT/ML SUBCUT SCH ×4 (07:54→20:18)
[2018-09-02] MEDS: LEVOFLOXACIN INJ 500 MG in PREMIX 1 EACH IV SCH (08:57)
[2018-09-02] MEDS: OLMESARTAN 5 MG TABLET PO SCH (08:57)
[2018-09-02] MEDS: ALPRAZolam 0.5 MG TABLET PO SCH ×2 (08:58→20:18)
[2018-09-02] MEDS: PANTOPRAZOLE 40 MG TABLET PO SCH (08:58)
[2018-09-02] MEDS: ASPIRIN EC 325 MG TABLET PO SCH (08:58)
[2018-09-02] MEDS: FUROSEMIDE 40 MG TABLET PO SCH (09:00)
[2018-09-02] MEDS: ENOXAPARIN 40 MG/0.4 ML SYRINGE SUBCUT SCH (11:07)
[2018-09-03] MEDS: methylPREDNISolone SOD SUC 40 MG/1 ML VIAL IV SCH ×2 (00:42→09:12)
[2018-09-03 04:28] LABS: Hematocrit 31.3 VOL% (35.7-47.0); Hemoglobin 10.2 GM/DL (12.0-16.0); Immature Granulocytes % 0.5 %; Immature Granulocytes Absolute 0.05 #; Lymphocytes # 0.6 10*3/uL (1.4-4.0); Lymphocytes % 5.8 % (21.3-54.2); Mean Corpuscular HGB Conc 32.6 GM/DL (32-36); Mean Corpuscular Hemoglobin 32 PG (27-34); Mean Corpuscular Volume 98.1 FL (87-102); Mean Platelet Volume 10.8 FL (9.6-12.0); Monocytes # 0.2 10*3/uL (0.11-0.8); Neutrophils # 8.7 10*3/uL (1.4-7.4); Neutrophils % 91.7 % (38.7-73.9); Platelet Count 144 T/CUMM (130-400); Red Blood Count 3.19 MC/CUMM (3.8-5.5); White Blood Count 9.5 T/CUMM (4-12)
[2018-09-03 04:45] LABS: Calcium 8.8 MG/DL (8.5-10.1); Osmolality,Calculated 292.1 MOS/KG (273-304); Potassium 3.8 MMOL/L (3.5-5.1)
[2018-09-03 05:07] LABS: Hypochromasia 1+; Lymphocytes 2 % (20-55); Platelet Estimate Normal; Segmented Neutrophils 97 % (50-85); Total Cells Counted 100
[2018-09-03 05:08] LABS: Ovalocytes 1+
[2018-09-03] MEDS: LEVOFLOXACIN INJ 500 MG in PREMIX 1 EACH IV SCH (09:12)
[2018-09-03] MEDS: ENOXAPARIN 40 MG/0.4 ML SYRINGE SUBCUT SCH ×2 (09:12→14:21)
[2018-09-03] MEDS: FUROSEMIDE 40 MG TABLET PO SCH (09:13)
[2018-09-03] MEDS: OLMESARTAN 5 MG TABLET PO SCH (09:13)
[2018-09-03] MEDS: ASPIRIN EC 325 MG TABLET PO SCH (09:13)
[2018-09-03] MEDS: PANTOPRAZOLE 40 MG TABLET PO SCH (09:13)
[2018-09-03] MEDS: ALPRAZolam 0.5 MG TABLET PO SCH (09:13)
[2018-09-03] MEDS: INSULIN REGULAR 100 UNIT/ML SUBCUT SCH ×2 (10:52→14:21)
[2018-09-03 14:29] VITALS: BP 129/79
== END 2018-09-03 14:26 | disposition home health service (06) | DRG 313 ==
LOC: EDBD → EDUNIT# → N.ED 15:04 → N.EDINP 16:58 → N.5E 19:29
PROVIDERS: ADMIT Family Medicine; ATTEND Family Medicine

== ENCOUNTER 2020-01-24 21:37 | Inpatient (IN) ==
[2020-01-24] MEDS ORDERED: ASPIRIN 325 MG TABLET PO STA (22:13)
[2020-01-24 22:24] LABS: Basophils % 0.5 % (0.0-0.8); Eosinophils # 0.2 10*3/uL (0.0-0.87); Eosinophils % 2.7 % (0.00-10.9); Hematocrit 32.3 VOL% (35.7-47.0); Hemoglobin 10.3 GM/DL (12.0-16.0); Immature Granulocytes % 0.3 %; Immature Granulocytes Absolute 0.02 #; Lymphocytes # 1.8 10*3/uL (1.4-4.0); Lymphocytes % 27.6 % (21.3-54.2); Mean Corpuscular HGB Conc 31.9 GM/DL (32-36); Mean Corpuscular Volume 101.9 FL (87-102); Mean Platelet Volume 10.1 FL (9.6-12.0); Monocytes % 6.3 % (1.7-12.7); Neutrophils % 62.6 % (38.7-73.9); Platelet Count 119 T/CUMM (130-400); Red Blood Count 3.17 MC/CUMM (3.8-5.5); Red Cell Distribution Width 13.5 % (9.3-17.3); White Blood Count 6.3 T/CUMM (4-12)
[2020-01-24 22:32] LABS: PT Patient Result 10.7 SECS (9.6-12.2); Partial Thromboplastin Time 25.7 SECS (20.8-36.0)
[2020-01-24 22:38] LABS: Alanine Aminotransferase 23 U/L (13-56); Albumin 3.5 G/DL (3.4-5.0); Alkaline Phosphatase 84 U/L (45-117); Aspartate Amino Transferase 23 U/L (0-37); Blood Urea Nitrogen 9 MG/DL (7-18); Calcium 9.1 MG/DL (8.5-10.1); Estimated Glom Filtration Rate 71 ML/MIN; Glucose 116 MG/DL (74-106); Osmolality,Calculated 272.8 MOS/KG (273-304); Troponin I < 0.015 NG/ML (0.00-0.045)
[2020-01-25] MEDS: ALPRAZolam 0.5 MG TABLET PO PRN ×2 (01:33→20:52)
[2020-01-25 06:05] LABS: Calcium 8.8 MG/DL (8.5-10.1); Osmolality,Calculated 279.3 MOS/KG (273-304)
[2020-01-25] MEDS: FUROSEMIDE 40 MG/4 ML VIAL IV SCH ×2 (10:07→18:31)
[2020-01-25] MEDS: SPIRONOLACTONE 25 MG TABLET PO SCH ×2 (10:09→20:52)
[2020-01-25] MEDS: PANTOPRAZOLE 40 MG TABLET PO SCH (10:09)
[2020-01-25] MEDS: OLMESARTAN 20 MG TABLET PO SCH (20:52)
[2020-01-25] MEDS: cloNIDine 0.1 MG TABLET PO SCH (20:52)
[2020-01-25] MEDS: hydroCHLOROthiazide 12.5 MG CAPSULE PO SCH (20:53)
[2020-01-26 05:59] LABS: Basophils % 0.5 % (0.0-0.8); Eosinophils # 0.1 10*3/uL (0.0-0.87); Eosinophils % 2.4 % (0.00-10.9); Hematocrit 30.9 VOL% (35.7-47.0); Hemoglobin 10.3 GM/DL (12.0-16.0); Immature Granulocytes % 0.2 %; Immature Granulocytes Absolute 0.01 #; Lymphocytes # 1.5 10*3/uL (1.4-4.0); Lymphocytes % 26.5 % (21.3-54.2); Mean Corpuscular HGB Conc 33.3 GM/DL (32-36); Mean Corpuscular Volume 98.4 FL (87-102); Mean Platelet Volume 10.3 FL (9.6-12.0); Monocytes % 5.7 % (1.7-12.7); Neutrophils % 64.7 % (38.7-73.9); Platelet Count 106 T/CUMM (130-400); Red Blood Count 3.14 MC/CUMM (3.8-5.5); Red Cell Distribution Width 13.5 % (9.3-17.3); White Blood Count 5.5 T/CUMM (4-12)
[2020-01-26 06:25] LABS: Albumin 3.1 G/DL (3.4-5.0); Calcium 9.1 MG/DL (8.5-10.1); Osmolality,Calculated 273.7 MOS/KG (273-304); Total Protein 6.3 G/DL (6.4-8.3)
[2020-01-26] MEDS: SPIRONOLACTONE 25 MG TABLET PO SCH ×2 (08:56→21:06)
[2020-01-26] MEDS: PANTOPRAZOLE 40 MG TABLET PO SCH (08:56)
[2020-01-26] MEDS: FUROSEMIDE 40 MG/4 ML VIAL IV SCH ×2 (08:56→16:20)
[2020-01-26] MEDS: ACETAMINOPHEN 500 MG TABLET PO PRN ×3 (10:20→21:05)
[2020-01-26 17:34] LABS: Apearance,Urine CLEAR (Clear); Bilirubin,Urine Negative (Negative); Blood, Urine Small mg/dL (Negative); Glucose,Urine (UA) Negative (Negative); Ketones,Urine Negative (Negative); Nitrite,Urine Negative (Negative); Protein,Urine Negative; RBC,Urine <1 /HPF (0-4); Urine Color Colorless (Yellow); Urine Specific Gravity 1.003 (1.001-1.035); Urine Urobilinogen < 2.0 EU/DL (0.2-1.0)
[2020-01-26] MEDS: OLMESARTAN 20 MG TABLET PO SCH (21:05)
[2020-01-26] MEDS: hydroCHLOROthiazide 12.5 MG CAPSULE PO SCH (21:05)
[2020-01-26] MEDS: ALPRAZolam 0.5 MG TABLET PO PRN (21:05)
[2020-01-26] MEDS: cloNIDine 0.1 MG TABLET PO SCH (21:06)
[2020-01-27 05:24] LABS: Basophils % 0.6 % (0.0-0.8); Eosinophils # 0.1 10*3/uL (0.0-0.87); Eosinophils % 2.4 % (0.00-10.9); Hemoglobin 11.6 GM/DL (12.0-16.0); Immature Granulocytes % 0.2 %; Immature Granulocytes Absolute 0.01 #; Lymphocytes # 1.8 10*3/uL (1.4-4.0); Lymphocytes % 33.2 % (21.3-54.2); Mean Corpuscular HGB Conc 33.1 GM/DL (32-36); Mean Corpuscular Volume 97.2 FL (87-102); Mean Platelet Volume 9.9 FL (9.6-12.0); Monocytes % 6.5 % (1.7-12.7); Neutrophils % 57.1 % (38.7-73.9); Platelet Count 113 T/CUMM (130-400); Red Cell Distribution Width 13.3 % (9.3-17.3); White Blood Count 5.4 T/CUMM (4-12)
[2020-01-27 05:50] LABS: Osmolality,Calculated 277.5 MOS/KG (273-304)
[2020-01-27] MEDS: FUROSEMIDE 40 MG/4 ML VIAL IV SCH ×2 (08:39→16:50)
[2020-01-27] MEDS: PANTOPRAZOLE 40 MG TABLET PO SCH (08:39)
[2020-01-27] MEDS: SPIRONOLACTONE 25 MG TABLET PO SCH ×2 (08:39→20:45)
[2020-01-27] MEDS: POTASSIUM CHLORIDE 20 MEQ TABLET PO PRN ×3 (08:39→15:17)
[2020-01-27] MEDS: ACETAMINOPHEN 500 MG TABLET PO PRN ×2 (15:17→20:48)
[2020-01-27] MEDS: OLMESARTAN 20 MG TABLET PO SCH (20:45)
[2020-01-27] MEDS: hydroCHLOROthiazide 12.5 MG CAPSULE PO SCH (20:45)
[2020-01-27] MEDS: cloNIDine 0.1 MG TABLET PO SCH (20:46)
[2020-01-27] MEDS: ALPRAZolam 0.5 MG TABLET PO PRN (20:48)
[2020-01-28 04:54] LABS: Basophils % 0.5 % (0.0-0.8); Eosinophils # 0.1 10*3/uL (0.0-0.87); Eosinophils % 1.7 % (0.00-10.9); Hematocrit 35.8 VOL% (35.7-47.0); Hemoglobin 11.7 GM/DL (12.0-16.0); Immature Granulocytes % 0.2 %; Immature Granulocytes Absolute 0.01 #; Lymphocytes # 1.9 10*3/uL (1.4-4.0); Lymphocytes % 30.2 % (21.3-54.2); Mean Corpuscular HGB Conc 32.7 GM/DL (32-36); Mean Corpuscular Volume 99.4 FL (87-102); Mean Platelet Volume 9.9 FL (9.6-12.0); Monocytes % 6.5 % (1.7-12.7); Neutrophils % 60.9 % (38.7-73.9); Platelet Count 124 T/CUMM (130-400); Red Cell Distribution Width 13.3 % (9.3-17.3); White Blood Count 6.3 T/CUMM (4-12)
[2020-01-28 04:58] LABS: Calcium 9.6 MG/DL (8.5-10.1); Osmolality,Calculated 270.4 MOS/KG (273-304)
[2020-01-28] MEDS: FUROSEMIDE 40 MG/4 ML VIAL IV SCH ×2 (08:59→15:43)
[2020-01-28] MEDS: SPIRONOLACTONE 25 MG TABLET PO SCH ×2 (08:59→22:03)
[2020-01-28] MEDS: PANTOPRAZOLE 40 MG TABLET PO SCH (09:00)
[2020-01-28] MEDS: traMADol 50 MG TABLET PO PRN ×2 (10:04→22:08)
[2020-01-28] MEDS: ACETAMINOPHEN 500 MG TABLET PO PRN (14:17)
[2020-01-28] MEDS: ONDANSETRON 4 MG/2 ML VIAL IV PRN (15:43)
[2020-01-28] MEDS: cloNIDine 0.1 MG TABLET PO SCH (22:04)
[2020-01-28] MEDS: ALPRAZolam 0.5 MG TABLET PO PRN (22:04)
[2020-01-28] MEDS: hydroCHLOROthiazide 12.5 MG CAPSULE PO SCH (22:04)
[2020-01-28] MEDS: OLMESARTAN 20 MG TABLET PO SCH (22:05)
[2020-01-29] MEDS: PANTOPRAZOLE 40 MG TABLET PO SCH (08:24)
[2020-01-29] MEDS: FUROSEMIDE 40 MG/4 ML VIAL IV SCH ×2 (08:24→17:36)
[2020-01-29] MEDS: SPIRONOLACTONE 25 MG TABLET PO SCH ×2 (08:24→20:57)
[2020-01-29] MEDS: traMADol 50 MG TABLET PO PRN ×2 (08:27→20:56)
[2020-01-29] MEDS: ACETAMINOPHEN 500 MG TABLET PO PRN (11:30)
[2020-01-29] MEDS: POTASSIUM CHLORIDE 20 MEQ TABLET PO PRN (20:56)
[2020-01-29] MEDS: OLMESARTAN 20 MG TABLET PO SCH (20:58)
[2020-01-29] MEDS: cloNIDine 0.1 MG TABLET PO SCH (20:58)
[2020-01-29] MEDS: hydroCHLOROthiazide 12.5 MG CAPSULE PO SCH (20:58)
[2020-01-30] MEDS: traMADol 50 MG TABLET PO PRN (03:09)
[2020-01-30 05:01] LABS: Basophils % 0.3 % (0.0-0.8); Eosinophils # 0.1 10*3/uL (0.0-0.87); Eosinophils % 1.6 % (0.00-10.9); Hematocrit 34.6 VOL% (35.7-47.0); Hemoglobin 11.4 GM/DL (12.0-16.0); Immature Granulocytes % 0.3 %; Immature Granulocytes Absolute 0.03 #; Lymphocytes # 1.2 10*3/uL (1.4-4.0); Lymphocytes % 14.4 % (21.3-54.2); Mean Corpuscular HGB Conc 32.9 GM/DL (32-36); Monocytes % 6.3 % (1.7-12.7); Neutrophils % 77.1 % (38.7-73.9); Platelet Count 115 T/CUMM (130-400); Red Blood Count 3.53 MC/CUMM (3.8-5.5); Red Cell Distribution Width 13.2 % (9.3-17.3); White Blood Count 8.6 T/CUMM (4-12)
[2020-01-30 05:15] LABS: Calcium 9.2 MG/DL (8.5-10.1); Osmolality,Calculated 271.7 MOS/KG (273-304)
[2020-01-30] MEDS: ONDANSETRON 4 MG/2 ML VIAL IV PRN (06:36)
[2020-01-30] MEDS: FUROSEMIDE 40 MG/4 ML VIAL IV SCH (08:23)
[2020-01-30] MEDS: SPIRONOLACTONE 25 MG TABLET PO SCH ×2 (08:37→21:19)
[2020-01-30] MEDS: ACETAMINOPHEN 500 MG TABLET PO PRN (08:37)
[2020-01-30] MEDS: PANTOPRAZOLE 40 MG TABLET PO SCH (08:37)
[2020-01-30] MEDS: SODIUM CHLOR 0.45% KCL 20 MEQ 20 MEQ/1,000 ML BAG IV SCH (08:42)
[2020-01-30] MEDS: OLMESARTAN 20 MG TABLET PO SCH (21:19)
[2020-01-30] MEDS: ALPRAZolam 0.5 MG TABLET PO PRN (21:19)
[2020-01-30] MEDS: hydroCHLOROthiazide 12.5 MG CAPSULE PO SCH (21:19)
[2020-01-30] MEDS: cloNIDine 0.1 MG TABLET PO SCH (21:19)
[2020-01-31 04:35] LABS: Basophils % 0.3 % (0.0-0.8); Eosinophils # 0.1 10*3/uL (0.0-0.87); Eosinophils % 2.2 % (0.00-10.9); Hematocrit 33.6 VOL% (35.7-47.0); Immature Granulocytes % 0.2 %; Immature Granulocytes Absolute 0.01 #; Lymphocytes # 1.8 10*3/uL (1.4-4.0); Lymphocytes % 29.1 % (21.3-54.2); Mean Corpuscular HGB Conc 32.7 GM/DL (32-36); Mean Corpuscular Volume 99.4 FL (87-102); Mean Platelet Volume 10.2 FL (9.6-12.0); Monocytes % 7.3 % (1.7-12.7); Neutrophils % 60.9 % (38.7-73.9); Platelet Count 115 T/CUMM (130-400); Red Blood Count 3.38 MC/CUMM (3.8-5.5); Red Cell Distribution Width 12.8 % (9.3-17.3)
[2020-01-31 05:06] LABS: Calcium 9.4 MG/DL (8.5-10.1); Osmolality,Calculated 270.4 MOS/KG (273-304)
[2020-01-31] MEDS: SODIUM CHLOR 0.45% KCL 20 MEQ 20 MEQ/1,000 ML BAG IV SCH ×3 (09:19→15:29)
[2020-01-31] MEDS: SPIRONOLACTONE 25 MG TABLET PO SCH ×2 (09:20→20:51)
[2020-01-31] MEDS: ACETAMINOPHEN 500 MG TABLET PO PRN (09:20)
[2020-01-31] MEDS: PANTOPRAZOLE 40 MG TABLET PO SCH (09:20)
[2020-01-31] MEDS: ALPRAZolam 0.5 MG TABLET PO PRN (20:50)
[2020-01-31] MEDS: OLMESARTAN 20 MG TABLET PO SCH (20:50)
[2020-01-31] MEDS: hydroCHLOROthiazide 12.5 MG CAPSULE PO SCH (20:50)
[2020-01-31] MEDS: cloNIDine 0.1 MG TABLET PO SCH (20:51)
[2020-02-01] MEDS: SPIRONOLACTONE 25 MG TABLET PO SCH (09:02)
[2020-02-01] MEDS: traMADol 50 MG TABLET PO PRN (09:02)
[2020-02-01] MEDS: PANTOPRAZOLE 40 MG TABLET PO SCH (09:02)
[2020-02-01 11:40] VITALS: BP 124/74
== END 2020-02-01 12:54 | disposition home health service (06) | DRG 948 ==
LOC: EDUNIT# → EDBD → N.EDINP 21:37 → N.ED 21:37 → N.TELEN 23:50
PROVIDERS: ADMIT Family Medicine; ATTEND Family Medicine

== ENCOUNTER 2020-05-05 14:28 | Inpatient (IN) ==
[2020-05-05 15:41] LABS: Basophils % 0.3 % (0.0-0.8); Eosinophils # 0.1 10*3/uL (0.0-0.87); Eosinophils % 0.6 % (0.00-10.9); Hematocrit 34.8 VOL% (35.7-47.0); Hemoglobin 11.4 GM/DL (12.0-16.0); Immature Granulocytes % 0.3 %; Immature Granulocytes Absolute 0.03 #; Lymphocytes # 1.3 10*3/uL (1.4-4.0); Lymphocytes % 14.2 % (21.3-54.2); Mean Corpuscular HGB Conc 32.8 GM/DL (32-36); Mean Corpuscular Volume 96.9 FL (87-102); Mean Platelet Volume 10.1 FL (9.6-12.0); Monocytes % 7.3 % (1.7-12.7); Neutrophils % 77.3 % (38.7-73.9); Platelet Count 133 T/CUMM (130-400); Red Blood Count 3.59 MC/CUMM (3.8-5.5); Red Cell Distribution Width 13.5 % (9.3-17.3); White Blood Count 8.9 T/CUMM (4-12)
[2020-05-05 15:53] LABS: Calcium 9.1 MG/DL (8.5-10.1); Osmolality,Calculated 269.1 MOS/KG (273-304)
[2020-05-05] MEDS ORDERED: SODIUM CHLORIDE 0.9% 500 ML IV STA (15:59)
[2020-05-05] MEDS ORDERED: ACETAMINOPHEN 325 MG TABLET PO PRN (16:10)
[2020-05-05] MEDS ORDERED: ONDANSETRON 4 MG/2 ML VIAL IV PRN (16:10)
[2020-05-05] MEDS: SODIUM CHLORIDE 0.9% 1,000 ML IV SCH (18:01)
[2020-05-05 19:55] LABS: Ferritin 39.7 ng/ml (8-252)
[2020-05-05] MEDS ORDERED: LOSARTAN/HCTZ 50-12.5 MG TABLET PO SCH (21:00)
[2020-05-05] MEDS ORDERED: OLMESARTAN HYDROCHLOROTHIAZIDE PO SCH (21:00)
[2020-05-05] MEDS: ALPRAZolam 0.5 MG TABLET PO SCH (22:23)
[2020-05-05] MEDS: ENOXAPARIN 40 MG/0.4 ML SYRINGE SUBCUT SCH (22:24)
[2020-05-06 03:24] LABS: Apearance,Urine CLEAR (Clear); Bilirubin,Urine Negative (Negative); Blood, Urine Moderate mg/dL (Negative); Glucose,Urine (UA) Negative (Negative); Ketones,Urine 20 mg/dL (Negative); Nitrite,Urine Negative (Negative); Protein,Urine 30 MG/DL; RBC,Urine 54 /HPF (0-4); Urine Color Yellow (Yellow); Urine Specific Gravity 1.021 (1.001-1.035); WBC,Urine <1 /HPF (0-6)
[2020-05-06] MEDS: SODIUM CHLORIDE 0.9% 1,000 ML IV SCH ×2 (03:39→17:21)
[2020-05-06 07:54] LABS: Basophils % 0.5 % (0.0-0.8); Eosinophils # 0.2 10*3/uL (0.0-0.87); Hematocrit 32.3 VOL% (35.7-47.0); Hemoglobin 10.6 GM/DL (12.0-16.0); Immature Granulocytes % 0.3 %; Immature Granulocytes Absolute 0.02 #; Lymphocytes # 1.5 10*3/uL (1.4-4.0); Lymphocytes % 20.8 % (21.3-54.2); Mean Corpuscular HGB Conc 32.8 GM/DL (32-36); Mean Corpuscular Volume 97.3 FL (87-102); Monocytes % 7.6 % (1.7-12.7); Neutrophils % 68.8 % (38.7-73.9); Platelet Count 119 T/CUMM (130-400); Red Blood Count 3.32 MC/CUMM (3.8-5.5); Red Cell Distribution Width 13.4 % (9.3-17.3); White Blood Count 7.3 T/CUMM (4-12)
[2020-05-06 08:22] LABS: Bilirubin,Total 2.3 MG/DL (0.2-1.0); Calcium 8.6 MG/DL (8.5-10.1); Osmolality,Calculated 273.7 MOS/KG (273-304); Total Protein 6.2 G/DL (6.4-8.3)
[2020-05-06] MEDS: PANTOPRAZOLE 40 MG TABLET PO SCH (08:52)
[2020-05-06] MEDS ORDERED: LOSARTAN/HCTZ 50-12.5 MG TABLET PO SCH (09:00)
[2020-05-06] MEDS: ALPRAZolam 0.5 MG TABLET PO SCH (20:12)
[2020-05-06] MEDS: ENOXAPARIN 40 MG/0.4 ML SYRINGE SUBCUT SCH (20:12)
[2020-05-06] MEDS: ESCITALOPRAM 10 MG TABLET PO SCH (20:12)
[2020-05-06] MEDS: cloNIDine 0.1 MG TABLET PO SCH (20:12)
[2020-05-07] MEDS: SODIUM CHLORIDE 0.9% 1,000 ML IV SCH ×2 (00:56→11:25)
[2020-05-07 05:09] LABS: Basophils % 0.3 % (0.0-0.8); Eosinophils # 0.2 10*3/uL (0.0-0.87); Eosinophils % 3.3 % (0.00-10.9); Hematocrit 30.7 VOL% (35.7-47.0); Immature Granulocytes % 0.3 %; Immature Granulocytes Absolute 0.02 #; Lymphocytes # 1.4 10*3/uL (1.4-4.0); Lymphocytes % 21.3 % (21.3-54.2); Mean Corpuscular HGB Conc 32.6 GM/DL (32-36); Mean Corpuscular Volume 97.5 FL (87-102); Monocytes % 6.5 % (1.7-12.7); Neutrophils % 68.3 % (38.7-73.9); Platelet Count 126 T/CUMM (130-400); Red Blood Count 3.15 MC/CUMM (3.8-5.5); Red Cell Distribution Width 13.3 % (9.3-17.3); White Blood Count 6.4 T/CUMM (4-12)
[2020-05-07 05:26] LABS: Albumin 2.6 G/DL (3.4-5.0); Bilirubin,Total 1.7 MG/DL (0.2-1.0); Calcium 8.2 MG/DL (8.5-10.1); Total Protein 5.7 G/DL (6.4-8.3)
[2020-05-07 05:50] LABS: Hypochromasia Slight; Macrocytosis Slight; Polychromasia Slight
[2020-05-07 05:51] LABS: Platelet Estimate Adequate
[2020-05-07 06:20] LABS: Hepatitis B Core IgM Quant 0.17 Index; Hepatitis B Surface Ag Quant 0.23 Index; Hepatitis B Surface Ag Result Negative (Negative); Hepatitis C Virus Ab Quant 0.08 Index; Hepatitis C Virus Ab Result Negative (Negative)
[2020-05-07] MEDS ORDERED: POTASSIUM CHLORIDE INJ 20 MEQ in SODIUM CHLORIDE 0.9% 1,000 ML IV SCH (08:33)
[2020-05-07] MEDS ORDERED: OLMESARTAN 20 MG TABLET PO SCH (09:00)
[2020-05-07] MEDS: PANTOPRAZOLE 40 MG TABLET PO SCH (09:29)
[2020-05-07] MEDS: POTASSIUM CHLORIDE RIDER 10 MEQ in PREMIX 1 EACH IV SCH ×4 (09:29→14:20)
[2020-05-07] MEDS: hydroCHLOROthiazide 12.5 MG CAPSULE PO SCH (09:29)
[2020-05-07] MEDS: SODIUM CHLOR 0.9% KCL 20 MEQ 20 MEQ/1,000 ML BAG IV SCH ×2 (12:32→18:45)
[2020-05-07] MEDS: APIXABAN 2.5 MG TABLET PO SCH (20:49)
[2020-05-07] MEDS: ESCITALOPRAM 10 MG TABLET PO SCH (20:49)
[2020-05-07] MEDS: ALPRAZolam 0.5 MG TABLET PO SCH (20:49)
[2020-05-07] MEDS: cloNIDine 0.1 MG TABLET PO SCH (20:49)
[2020-05-07] MEDS ORDERED: ATORVASTATIN 40 MG TABLET PO SCH (21:00)
[2020-05-08 05:37] LABS: Basophils % 0.4 % (0.0-0.8); Eosinophils # 0.2 10*3/uL (0.0-0.87); Eosinophils % 3.5 % (0.00-10.9); Hematocrit 30.1 VOL% (35.7-47.0); Immature Granulocytes % 0.3 %; Immature Granulocytes Absolute 0.02 #; Lymphocytes # 1.1 10*3/uL (1.4-4.0); Lymphocytes % 15.6 % (21.3-54.2); Mean Corpuscular HGB Conc 33.2 GM/DL (32-36); Mean Corpuscular Volume 96.2 FL (87-102); Mean Platelet Volume 9.9 FL (9.6-12.0); Monocytes % 6.9 % (1.7-12.7); Neutrophils % 73.3 % (38.7-73.9); Platelet Count 120 T/CUMM (130-400); Red Blood Count 3.13 MC/CUMM (3.8-5.5); Red Cell Distribution Width 13.5 % (9.3-17.3); White Blood Count 6.9 T/CUMM (4-12)
[2020-05-08 06:00] LABS: Albumin 2.7 G/DL (3.4-5.0); Bilirubin,Total 1.1 MG/DL (0.2-1.0); Calcium 8.5 MG/DL (8.5-10.1); Total Protein 5.8 G/DL (6.4-8.3)
[2020-05-08 06:14] LABS: Hypochromasia Slight
[2020-05-08 06:15] LABS: Platelet Estimate Normal
[2020-05-08] MEDS: PANTOPRAZOLE 40 MG TABLET PO SCH (08:37)
[2020-05-08] MEDS: hydroCHLOROthiazide 12.5 MG CAPSULE PO SCH (08:37)
[2020-05-08] MEDS: APIXABAN 2.5 MG TABLET PO SCH (08:37)
[2020-05-08] MEDS ORDERED: OLMESARTAN 20 MG TABLET PO SCH (09:00)
[2020-05-08] MEDS: SODIUM CHLOR 0.9% KCL 20 MEQ 20 MEQ/1,000 ML BAG IV SCH (10:54)
[2020-05-08 11:33] LABS: Risk Ratio 4.63
[2020-05-08 15:59] VITALS: BP 189/86
== END 2020-05-08 18:07 | DRG 65 ==
LOC: N.ED 14:28 → N.EDINP 14:28 → N.3E 18:32
PROVIDERS: ADMIT Family Medicine; ATTEND Family Medicine

== ENCOUNTER 2020-10-22 18:24 | Inpatient (IN) ==
[2020-10-22 19:16] LABS: Basophils % 0.2 % (0.0-0.8); Eosinophils % 0.4 % (0.00-10.9); Hematocrit 33.2 VOL% (35.7-47.0); Hemoglobin 11.1 GM/DL (12.0-16.0); Immature Granulocytes % 0.5 %; Immature Granulocytes Absolute 0.05 #; Lymphocytes # 0.8 10*3/uL (1.4-4.0); Lymphocytes % 7.1 % (21.3-54.2); Mean Corpuscular HGB Conc 33.4 GM/DL (32-36); Mean Corpuscular Volume 98.2 FL (87-102); Mean Platelet Volume 10.8 FL (9.6-12.0); Monocytes % 6.7 % (1.7-12.7); Neutrophils % 85.1 % (38.7-73.9); Platelet Count 124 T/CUMM (130-400); Red Blood Count 3.38 MC/CUMM (3.8-5.5); Red Cell Distribution Width 13.6 % (9.3-17.3); White Blood Count 10.8 T/CUMM (4-12)
[2020-10-22 19:28] LABS: Bilirubin,Total 1.1 MG/DL (0.2-1.0); Calcium 8.9 MG/DL (8.5-10.1); Osmolality,Calculated 277.2 MOS/KG (273-304)
[2020-10-22 19:42] LABS: Troponin I < 0.015 NG/ML (0.00-0.045)
[2020-10-22 20:18] LABS: Macrocytosis 1+
[2020-10-22 20:19] LABS: Polychromasia Slight
[2020-10-22 20:20] LABS: Platelet Estimate Adequate
[2020-10-22] MEDS ORDERED: ACETAMINOPHEN 325 MG/10.15 ML UDCUP PO STA (20:27)
[2020-10-22] MEDS ORDERED: SODIUM CHLORIDE 0.9% 1,000 ML IV STA (20:29)
[2020-10-22] MEDS ORDERED: ACETAMINOPHEN 500 MG TABLET ONE (20:32)
[2020-10-22] MEDS ORDERED: ACETAMINOPHEN 650 MG SUPP RECTAL STA (20:34)
[2020-10-22 20:38] LABS: Bacteria,Urine Many /HPF (Few); Bilirubin,Urine Negative (Negative); Blood, Urine Large mg/dL (Negative); Glucose,Urine (UA) Negative (Negative); Ketones,Urine Negative (Negative); Mucus,Urine Occasional /LPF (Occasional); Nitrite,Urine Negative (Negative); Protein,Urine Negative; RBC,Urine 13 /HPF (0-4); Urine Appearance CLOUDY (Clear); Urine Color Yellow (Yellow); Urine Specific Gravity 1.016 (1.001-1.035); WBC,Urine 128 /HPF (0-6)
[2020-10-22] MEDS ORDERED: LEVOFLOXACIN INJ 750 MG in PREMIX 1 EACH IV STA ×2 (22:26→22:48)
[2020-10-23] MEDS ORDERED: GLUCAGON 1 MG VIAL IM PRN (01:54)
[2020-10-23] MEDS ORDERED: DEXTROSE 50% 25 GM/50 ML VIAL IV PRN (01:54)
[2020-10-23] MEDS ORDERED: SODIUM CHLORIDE 0.45% 1,000 ML IV SCH (01:54)
[2020-10-23] MEDS: INSULIN REGULAR 100 UNIT/ML SUBCUT SCH ×4 (08:00→20:48)
[2020-10-23] MEDS: ACETAMINOPHEN 325 MG TABLET PO PRN (08:14)
[2020-10-23] MEDS: DOCUSATE SODIUM 100 MG CAPSULE PO SCH ×2 (08:14→20:45)
[2020-10-23] MEDS: PANTOPRAZOLE 40 MG TABLET PO SCH (08:14)
[2020-10-23] MEDS: SODIUM CHLOR 0.45% KCL 20 MEQ 20 MEQ/1,000 ML BAG IV SCH ×2 (09:51→17:47)
[2020-10-23] MEDS: APIXABAN 2.5 MG TABLET PO SCH ×2 (09:51→20:45)
[2020-10-23] MEDS: ATORVASTATIN 40 MG TABLET PO SCH (20:45)
[2020-10-23] MEDS: ALPRAZolam 0.5 MG TABLET PO PRN (20:45)
[2020-10-23] MEDS: ESCITALOPRAM 10 MG TABLET PO SCH (20:45)
[2020-10-23] MEDS: LEVOFLOXACIN INJ 500 MG in PREMIX 1 EACH IV SCH (20:47)
[2020-10-23] MEDS: MENTHOL/ZINC OXIDE OINT 71 GM JAR TOP SCH (20:50)
[2020-10-24] MEDS: SODIUM CHLOR 0.45% KCL 20 MEQ 20 MEQ/1,000 ML BAG IV SCH ×3 (02:20→23:32)
[2020-10-24 05:56] LABS: Basophils % 0.3 % (0.0-0.8); Eosinophils # 0.1 10*3/uL (0.0-0.87); Eosinophils % 1.7 % (0.00-10.9); Hematocrit 30.2 VOL% (35.7-47.0); Hemoglobin 10.1 GM/DL (12.0-16.0); Immature Granulocytes % 0.4 %; Immature Granulocytes Absolute 0.03 #; Lymphocytes # 1.1 10*3/uL (1.4-4.0); Lymphocytes % 15.6 % (21.3-54.2); Mean Corpuscular HGB Conc 33.4 GM/DL (32-36); Mean Corpuscular Volume 98.4 FL (87-102); Mean Platelet Volume 10.6 FL (9.6-12.0); Monocytes % 7.7 % (1.7-12.7); Neutrophils % 74.3 % (38.7-73.9); Platelet Count 124 T/CUMM (130-400); Red Blood Count 3.07 MC/CUMM (3.8-5.5); Red Cell Distribution Width 13.2 % (9.3-17.3)
[2020-10-24 06:27] LABS: Albumin 2.6 G/DL (3.4-5.0); Bilirubin,Total 1.1 MG/DL (0.2-1.0); Osmolality,Calculated 273.8 MOS/KG (273-304); Thyroid Stimulating Hormone 1.89 uIU/ml (0.358-3.74); Total Protein 6.4 G/DL (6.4-8.3)
[2020-10-24 07:30] LABS: Anisocytosis 1+; Burr Cells Few; Platelet Estimate Adequate
[2020-10-24 07:31] LABS: Macrocytosis Slight; Tear Drop Cells Few
[2020-10-24] MEDS: INSULIN REGULAR 100 UNIT/ML SUBCUT SCH ×4 (07:57→20:57)
[2020-10-24] MEDS: OLMESARTAN 20 MG TABLET PO SCH (09:55)
[2020-10-24] MEDS: PANTOPRAZOLE 40 MG TABLET PO SCH (09:56)
[2020-10-24] MEDS: APIXABAN 2.5 MG TABLET PO SCH ×2 (09:56→20:51)
[2020-10-24] MEDS: MENTHOL/ZINC OXIDE OINT 71 GM JAR TOP SCH ×2 (09:56→20:51)
[2020-10-24] MEDS: DOCUSATE SODIUM 100 MG CAPSULE PO SCH ×2 (09:56→20:50)
[2020-10-24] MEDS: hydroCHLOROthiazide 25 MG TABLET PO SCH (09:56)
[2020-10-24] MEDS: methylPREDNISolone SOD SUC 40 MG/1 ML VIAL IV SCH ×2 (11:48→17:25)
[2020-10-24] MEDS: ESCITALOPRAM 10 MG TABLET PO SCH (20:50)
[2020-10-24] MEDS: ATORVASTATIN 40 MG TABLET PO SCH (20:51)
[2020-10-24] MEDS: LEVOFLOXACIN INJ 500 MG in PREMIX 1 EACH IV SCH (20:52)
[2020-10-25] MEDS: ONDANSETRON 4 MG/2 ML VIAL IV PRN ×2 (00:42→09:49)
[2020-10-25] MEDS: methylPREDNISolone SOD SUC 40 MG/1 ML VIAL IV SCH (00:46)
[2020-10-25 07:03] LABS: Basophils % 0.1 % (0.0-0.8); Hematocrit 32.8 VOL% (35.7-47.0); Hemoglobin 11.2 GM/DL (12.0-16.0); Immature Granulocytes % 0.4 %; Immature Granulocytes Absolute 0.04 #; Lymphocytes # 0.6 10*3/uL (1.4-4.0); Lymphocytes % 6.2 % (21.3-54.2); Mean Corpuscular HGB Conc 34.1 GM/DL (32-36); Mean Corpuscular Volume 96.8 FL (87-102); Monocytes % 2.8 % (1.7-12.7); Neutrophils % 90.5 % (38.7-73.9); Platelet Count 164 T/CUMM (130-400); Red Blood Count 3.39 MC/CUMM (3.8-5.5); Red Cell Distribution Width 13.2 % (9.3-17.3); White Blood Count 9.2 T/CUMM (4-12)
[2020-10-25 07:23] LABS: Albumin 2.8 G/DL (3.4-5.0); Calcium 9.2 MG/DL (8.5-10.1); Osmolality,Calculated 271.5 MOS/KG (273-304)
[2020-10-25] MEDS: INSULIN REGULAR 100 UNIT/ML SUBCUT SCH ×4 (09:00→21:26)
[2020-10-25] MEDS: SODIUM CHLOR 0.45% KCL 20 MEQ 20 MEQ/1,000 ML BAG IV SCH ×3 (09:01→17:45)
[2020-10-25] MEDS: OLMESARTAN 20 MG TABLET PO SCH (10:45)
[2020-10-25] MEDS: DOCUSATE SODIUM 100 MG CAPSULE PO SCH ×2 (10:45→21:45)
[2020-10-25] MEDS: PANTOPRAZOLE 40 MG TABLET PO SCH (10:46)
[2020-10-25] MEDS: hydroCHLOROthiazide 25 MG TABLET PO SCH (10:46)
[2020-10-25] MEDS: MENTHOL/ZINC OXIDE OINT 71 GM JAR TOP SCH ×2 (10:46→21:48)
[2020-10-25] MEDS: APIXABAN 2.5 MG TABLET PO SCH ×2 (10:46→21:45)
[2020-10-25] MEDS: ALPRAZolam 0.5 MG TABLET PO PRN ×2 (14:34→21:45)
[2020-10-25] MEDS: LEVOFLOXACIN INJ 500 MG in PREMIX 1 EACH IV SCH (21:43)
[2020-10-25] MEDS: ATORVASTATIN 40 MG TABLET PO SCH (21:45)
[2020-10-25] MEDS: ESCITALOPRAM 10 MG TABLET PO SCH (21:45)
[2020-10-26] MEDS: SODIUM CHLOR 0.45% KCL 20 MEQ 20 MEQ/1,000 ML BAG IV SCH (02:56)
[2020-10-26 05:53] LABS: Basophils % 0.1 % (0.0-0.8); Eosinophils % 0.1 % (0.00-10.9); Hematocrit 30.7 VOL% (35.7-47.0); Hemoglobin 10.4 GM/DL (12.0-16.0); Immature Granulocytes % 0.7 %; Immature Granulocytes Absolute 0.08 #; Lymphocytes # 1.3 10*3/uL (1.4-4.0); Lymphocytes % 10.9 % (21.3-54.2); Mean Corpuscular HGB Conc 33.9 GM/DL (32-36); Mean Corpuscular Volume 95.9 FL (87-102); Mean Platelet Volume 10.3 FL (9.6-12.0); Neutrophils % 81.2 % (38.7-73.9); Platelet Count 184 T/CUMM (130-400); Red Cell Distribution Width 13.2 % (9.3-17.3); White Blood Count 12.1 T/CUMM (4-12)
[2020-10-26 06:14] LABS: Calcium 8.5 MG/DL (8.5-10.1); Osmolality,Calculated 268.7 MOS/KG (273-304)
[2020-10-26] MEDS: SODIUM CHLORIDE 0.45% 1,000 ML IV SCH ×2 (06:48→17:45)
[2020-10-26] MEDS: hydroCHLOROthiazide 25 MG TABLET PO SCH (09:13)
[2020-10-26] MEDS: OLMESARTAN 20 MG TABLET PO SCH (09:13)
[2020-10-26] MEDS: PANTOPRAZOLE 40 MG TABLET PO SCH (09:14)
[2020-10-26] MEDS: DOCUSATE SODIUM 100 MG CAPSULE PO SCH ×2 (09:14→21:09)
[2020-10-26] MEDS: APIXABAN 2.5 MG TABLET PO SCH ×2 (09:14→21:09)
[2020-10-26] MEDS: MENTHOL/ZINC OXIDE OINT 71 GM JAR TOP SCH ×2 (09:14→21:08)
[2020-10-26] MEDS: INSULIN REGULAR 100 UNIT/ML SUBCUT SCH ×4 (09:14→21:54)
[2020-10-26] MEDS: MORPHINE 4 MG/1 ML VIAL IV PRN (13:17)
[2020-10-26 14:15] LABS: Troponin I 0.556 NG/ML (0.00-0.045)
[2020-10-26] MEDS: NITROGLYCERIN SL 0.4 MG TABLET SL PRN (14:17)
[2020-10-26 17:34] LABS: Troponin I 0.555 NG/ML (0.00-0.045)
[2020-10-26] MEDS: NITROGLYCERIN 2% OINT 1 INCH/GM PACK TOP SCH (17:45)
[2020-10-26 20:35] LABS: Troponin I 0.559 NG/ML (0.00-0.045)
[2020-10-26] MEDS: LEVOFLOXACIN INJ 500 MG in PREMIX 1 EACH IV SCH (21:05)
[2020-10-26] MEDS: ESCITALOPRAM 10 MG TABLET PO SCH (21:09)
[2020-10-26] MEDS: ATORVASTATIN 40 MG TABLET PO SCH (21:09)
[2020-10-26] MEDS: ALPRAZolam 0.5 MG TABLET PO PRN (21:09)
[2020-10-26 23:27] LABS: Troponin I 0.607 NG/ML (0.00-0.045)
[2020-10-27] MEDS: NITROGLYCERIN 2% OINT 1 INCH/GM PACK TOP SCH ×4 (00:01→18:16)
[2020-10-27] MEDS: SODIUM CHLORIDE 0.45% 1,000 ML IV SCH ×4 (03:45→21:47)
[2020-10-27 05:52] LABS: Basophils % 0.2 % (0.0-0.8); Eosinophils # 0.1 10*3/uL (0.0-0.87); Hematocrit 31.3 VOL% (35.7-47.0); Hemoglobin 10.6 GM/DL (12.0-16.0); Immature Granulocytes % 0.7 %; Immature Granulocytes Absolute 0.06 #; Lymphocytes # 1.5 10*3/uL (1.4-4.0); Lymphocytes % 17.9 % (21.3-54.2); Mean Corpuscular HGB Conc 33.9 GM/DL (32-36); Mean Corpuscular Volume 96.6 FL (87-102); Mean Platelet Volume 10.1 FL (9.6-12.0); Monocytes % 8.8 % (1.7-12.7); NRBC # 0.02 10*3/uL; Neutrophils % 71.4 % (38.7-73.9); Platelet Count 182 T/CUMM (130-400); Red Blood Count 3.24 MC/CUMM (3.8-5.5); Red Cell Distribution Width 13.2 % (9.3-17.3); White Blood Count 8.2 T/CUMM (4-12)
[2020-10-27 06:33] LABS: Calcium 8.9 MG/DL (8.5-10.1); Osmolality,Calculated 269.5 MOS/KG (273-304)
[2020-10-27] MEDS: INSULIN REGULAR 100 UNIT/ML SUBCUT SCH ×4 (08:16→20:58)
[2020-10-27] MEDS: hydroCHLOROthiazide 25 MG TABLET PO SCH (09:48)
[2020-10-27] MEDS: DOCUSATE SODIUM 100 MG CAPSULE PO SCH ×2 (09:48→20:57)
[2020-10-27] MEDS: OLMESARTAN 20 MG TABLET PO SCH (09:48)
[2020-10-27] MEDS: MENTHOL/ZINC OXIDE OINT 71 GM JAR TOP SCH ×2 (09:49→20:57)
[2020-10-27] MEDS: APIXABAN 2.5 MG TABLET PO SCH ×2 (09:49→20:57)
[2020-10-27] MEDS: PANTOPRAZOLE 40 MG TABLET PO SCH (09:49)
[2020-10-27] MEDS: carvediloL 3.125 MG TABLET PO SCH ×2 (14:47→20:58)
[2020-10-27] MEDS: ASPIRIN EC 81 MG TABLET PO SCH (14:47)
[2020-10-27] MEDS: MORPHINE 4 MG/1 ML VIAL IV PRN (17:32)
[2020-10-27] MEDS: NITROGLYCERIN SL 0.4 MG TABLET SL PRN (17:47)
[2020-10-27] MEDS: LEVOFLOXACIN INJ 500 MG in PREMIX 1 EACH IV SCH (20:55)
[2020-10-27] MEDS: ALPRAZolam 0.5 MG TABLET PO PRN (20:57)
[2020-10-27] MEDS: ESCITALOPRAM 10 MG TABLET PO SCH (20:58)
[2020-10-27] MEDS: ATORVASTATIN 40 MG TABLET PO SCH (21:49)
[2020-10-28] MEDS: NITROGLYCERIN 2% OINT 1 INCH/GM PACK TOP SCH ×2 (00:12→07:36)
[2020-10-28 03:38] LABS: Basophils % 0.3 % (0.0-0.8); Eosinophils # 0.1 10*3/uL (0.0-0.87); Eosinophils % 2.1 % (0.00-10.9); Hematocrit 31.4 VOL% (35.7-47.0); Hemoglobin 10.5 GM/DL (12.0-16.0); Immature Granulocytes % 0.4 %; Immature Granulocytes Absolute 0.03 #; Lymphocytes # 1.3 10*3/uL (1.4-4.0); Lymphocytes % 19.4 % (21.3-54.2); Mean Corpuscular HGB Conc 33.4 GM/DL (32-36); Mean Corpuscular Volume 97.5 FL (87-102); Mean Platelet Volume 9.9 FL (9.6-12.0); Monocytes % 6.2 % (1.7-12.7); Neutrophils % 71.6 % (38.7-73.9); Platelet Count 160 T/CUMM (130-400); Red Blood Count 3.22 MC/CUMM (3.8-5.5); Red Cell Distribution Width 13.4 % (9.3-17.3); White Blood Count 6.8 T/CUMM (4-12)
[2020-10-28 03:56] LABS: Calcium 8.3 MG/DL (8.5-10.1); Osmolality,Calculated 274.1 MOS/KG (273-304)
[2020-10-28 04:07] LABS: Troponin I 0.251 NG/ML (0.00-0.045)
[2020-10-28] MEDS: INSULIN REGULAR 100 UNIT/ML SUBCUT SCH ×4 (08:03→21:27)
[2020-10-28] MEDS: SODIUM CHLORIDE 0.45% 1,000 ML IV SCH ×2 (08:04→18:08)
[2020-10-28] MEDS: carvediloL 3.125 MG TABLET PO SCH ×3 (10:28→21:27)
[2020-10-28] MEDS: DOCUSATE SODIUM 100 MG CAPSULE PO SCH ×3 (10:28→21:27)
[2020-10-28] MEDS: MENTHOL/ZINC OXIDE OINT 71 GM JAR TOP SCH ×2 (10:28→21:27)
[2020-10-28] MEDS: ASPIRIN EC 81 MG TABLET PO SCH ×2 (10:28)
[2020-10-28] MEDS: PANTOPRAZOLE 40 MG TABLET PO SCH ×2 (10:28→10:29)
[2020-10-28] MEDS: OLMESARTAN 20 MG TABLET PO SCH ×2 (10:28)
[2020-10-28] MEDS: ISOSORBIDE MONONITRATE 30 MG TABLET PO SCH (10:28)
[2020-10-28] MEDS: hydroCHLOROthiazide 25 MG TABLET PO SCH ×2 (10:28→10:29)
[2020-10-28] MEDS: ACETAMINOPHEN 325 MG TABLET PO PRN (20:59)
[2020-10-28] MEDS: ATORVASTATIN 40 MG TABLET PO SCH (21:27)
[2020-10-28] MEDS: ESCITALOPRAM 10 MG TABLET PO SCH (21:27)
[2020-10-28] MEDS: APIXABAN 2.5 MG TABLET PO SCH (21:27)
[2020-10-28] MEDS: LEVOFLOXACIN INJ 500 MG in PREMIX 1 EACH IV SCH (22:51)
[2020-10-29] MEDS: SODIUM CHLORIDE 0.45% 1,000 ML IV SCH (04:41)
[2020-10-29 06:45] LABS: Basophils % 0.3 % (0.0-0.8); Eosinophils # 0.1 10*3/uL (0.0-0.87); Hemoglobin 10.1 GM/DL (12.0-16.0); Immature Granulocytes % 0.6 %; Immature Granulocytes Absolute 0.04 #; Lymphocytes # 1.4 10*3/uL (1.4-4.0); Mean Corpuscular HGB Conc 33.7 GM/DL (32-36); Mean Corpuscular Volume 96.8 FL (87-102); Mean Platelet Volume 9.6 FL (9.6-12.0); Neutrophils % 70.1 % (38.7-73.9); Platelet Count 178 T/CUMM (130-400); Red Cell Distribution Width 13.4 % (9.3-17.3); White Blood Count 6.6 T/CUMM (4-12)
[2020-10-29 06:59] LABS: Calcium 8.5 MG/DL (8.5-10.1); Osmolality,Calculated 276.8 MOS/KG (273-304)
[2020-10-29 07:09] LABS: Hypochromasia 1+; Lymphocytes 29 % (20-55); Microcytosis 1+; Platelet Estimate Adequate; Segmented Neutrophils 67 % (50-85); Total Cells Counted 100
[2020-10-29 07:29] VITALS: BP 140/77
[2020-10-29] MEDS: INSULIN REGULAR 100 UNIT/ML SUBCUT SCH (07:36)
[2020-10-29] MEDS ORDERED: LEVOFLOXACIN 500 MG TABLET PO SCH (08:30)
[2020-10-29] MEDS ORDERED: MAGNESIUM CHLORIDE 64 MG TABLET PO SCH (09:00)
[2020-10-29] MEDS: OLMESARTAN 20 MG TABLET PO SCH (09:21)
[2020-10-29] MEDS: PANTOPRAZOLE 40 MG TABLET PO SCH (09:21)
[2020-10-29] MEDS: APIXABAN 2.5 MG TABLET PO SCH (09:21)
[2020-10-29] MEDS: carvediloL 3.125 MG TABLET PO SCH (09:21)
[2020-10-29] MEDS: ISOSORBIDE MONONITRATE 30 MG TABLET PO SCH (09:21)
[2020-10-29] MEDS: DOCUSATE SODIUM 100 MG CAPSULE PO SCH (09:21)
[2020-10-29] MEDS: hydroCHLOROthiazide 25 MG TABLET PO SCH (09:22)
[2020-10-29] MEDS: MENTHOL/ZINC OXIDE OINT 71 GM JAR TOP SCH (09:22)
[2020-10-29] MEDS: ASPIRIN EC 81 MG TABLET PO SCH (09:22)
== END 2020-10-29 11:03 | disposition home health service (06) | DRG 689 ==
LOC: EDUNIT# → N.ED 18:24 → N.EDINP 18:24 → N.5E 23:15
PROVIDERS: ADMIT Family Medicine; ATTEND Family Medicine

== ENCOUNTER 2020-10-30 01:44 | Observation (INO) ==
[2020-10-30] MEDS ORDERED: MORPHINE 4 MG/1 ML VIAL IV STA (02:09)
[2020-10-30] MEDS ORDERED: NITROGLYCERIN 2% OINT 1 INCH/GM PACK TOP STA (02:09)
[2020-10-30] MEDS ORDERED: ONDANSETRON 4 MG/2 ML VIAL IV STA (02:09)
[2020-10-30] MEDS ORDERED: ASPIRIN 325 MG TABLET PO STA (02:09)
[2020-10-30] MEDS ORDERED: FUROSEMIDE 40 MG/4 ML VIAL IV STA (02:10)
[2020-10-30 02:22] LABS: Basophils % 0.3 % (0.0-0.8); Eosinophils # 0.1 10*3/uL (0.0-0.87); Eosinophils % 1.3 % (0.00-10.9); Immature Granulocytes % 0.4 %; Immature Granulocytes Absolute 0.04 #; Lymphocytes # 1.5 10*3/uL (1.4-4.0); Lymphocytes % 15.7 % (21.3-54.2); Mean Corpuscular HGB Conc 33.3 GM/DL (32-36); Mean Corpuscular Volume 97.3 FL (87-102); Mean Platelet Volume 9.3 FL (9.6-12.0); Monocytes % 5.3 % (1.7-12.7); Platelet Count 208 T/CUMM (130-400); Red Blood Count 3.39 MC/CUMM (3.8-5.5); Red Cell Distribution Width 13.7 % (9.3-17.3); White Blood Count 9.6 T/CUMM (4-12)
[2020-10-30 02:34] LABS: Bilirubin,Total 0.5 MG/DL (0.2-1.0); Calcium 9.1 MG/DL (8.5-10.1); Osmolality,Calculated 277.8 MOS/KG (273-304); Total Protein 6.7 G/DL (6.4-8.3)
[2020-10-30 02:49] LABS: INR 1.1; PT Patient Result 12.1 SECS (9.8-11.9)
[2020-10-30 03:00] LABS: Bacteria,Urine Occasional /HPF (Few); Bilirubin,Urine Negative (Negative); Blood, Urine Small mg/dL (Negative); Glucose,Urine (UA) Negative (Negative); Ketones,Urine Negative (Negative); Nitrite,Urine Negative (Negative); Protein,Urine Negative; RBC,Urine 1 /HPF (0-4); Squamous Epithelial Cell,Urine Occasional /HPF (0-10); Urine Appearance CLEAR (Clear); Urine Color Straw (Yellow); Urine Specific Gravity 1.008 (1.001-1.035); Urine Urobilinogen < 2.0 EU/DL (0.2-1.0); WBC,Urine <1 /HPF (0-6)
[2020-10-30] MEDS ORDERED: MAGNESIUM SULF RIDER 2 GM in PREMIX 1 EACH IV STA (03:05)
[2020-10-30] MEDS ORDERED: DEXTROSE 50% 25 GM/50 ML VIAL IV PRN (04:35)
[2020-10-30] MEDS ORDERED: NITROGLYCERIN SL 0.4 MG TABLET SL PRN (04:35)
[2020-10-30] MEDS ORDERED: LEVOFLOXACIN 500 MG TABLET PO SCH (04:35)
[2020-10-30] MEDS ORDERED: ALBUTEROL/IPRATROPIUM 3 ML NEB RESP TX PRN (04:35)
[2020-10-30] MEDS ORDERED: GLUCAGON 1 MG VIAL IM PRN (04:35)
[2020-10-30 05:31] LABS: Troponin I 0.156 NG/ML (0.00-0.045)
[2020-10-30] MEDS: INSULIN REGULAR 100 UNIT/ML SUBCUT SCH ×3 (06:39→17:41)
[2020-10-30] MEDS: SODIUM CHLORIDE 0.9% 1,000 ML IV SCH (07:27)
[2020-10-30] MEDS: ISOSORBIDE MONONITRATE 30 MG TABLET PO SCH (10:05)
[2020-10-30] MEDS: ASPIRIN EC 81 MG TABLET PO SCH (10:05)
[2020-10-30] MEDS: DOCUSATE SODIUM 100 MG CAPSULE PO SCH ×2 (10:05→21:11)
[2020-10-30] MEDS: MAGNESIUM CHLORIDE 64 MG TABLET PO SCH ×2 (10:05→21:10)
[2020-10-30] MEDS: OLMESARTAN 20 MG TABLET PO SCH (10:05)
[2020-10-30] MEDS: hydroCHLOROthiazide 25 MG TABLET PO SCH (10:05)
[2020-10-30] MEDS: carvediloL 3.125 MG TABLET PO SCH ×2 (10:06→21:11)
[2020-10-30] MEDS: LEVOFLOXACIN 500 MG TABLET PO SCH (10:06)
[2020-10-30] MEDS: APIXABAN 2.5 MG TABLET PO SCH ×2 (10:06→21:10)
[2020-10-30] MEDS: FUROSEMIDE 40 MG/4 ML VIAL IV SCH ×2 (10:07→17:34)
[2020-10-30] MEDS: PANTOPRAZOLE 40 MG VIAL IV SCH (10:09)
[2020-10-30] MEDS: ALPRAZolam 0.5 MG TABLET PO PRN (21:09)
[2020-10-30] MEDS: ESCITALOPRAM 10 MG TABLET PO SCH (21:09)
[2020-10-30] MEDS: ATORVASTATIN 40 MG TABLET PO SCH (21:11)
[2020-10-31] MEDS: INSULIN REGULAR 100 UNIT/ML SUBCUT SCH ×4 (01:13→17:32)
[2020-10-31] MEDS: MORPHINE 4 MG/1 ML VIAL IV PRN ×2 (02:46→03:45)
[2020-10-31 05:33] LABS: Basophils % 0.4 % (0.0-0.8); Eosinophils # 0.1 10*3/uL (0.0-0.87); Eosinophils % 1.7 % (0.00-10.9); Hematocrit 32.1 VOL% (35.7-47.0); Hemoglobin 10.9 GM/DL (12.0-16.0); Immature Granulocytes % 0.6 %; Immature Granulocytes Absolute 0.05 #; Lymphocytes # 1.7 10*3/uL (1.4-4.0); Lymphocytes % 20.2 % (21.3-54.2); Mean Corpuscular Volume 96.4 FL (87-102); Mean Platelet Volume 9.4 FL (9.6-12.0); Monocytes % 6.5 % (1.7-12.7); Neutrophils % 70.6 % (38.7-73.9); Platelet Count 171 T/CUMM (130-400); Red Blood Count 3.33 MC/CUMM (3.8-5.5); Red Cell Distribution Width 13.8 % (9.3-17.3); White Blood Count 8.2 T/CUMM (4-12)
[2020-10-31 05:56] LABS: Albumin 2.6 G/DL (3.4-5.0); Bilirubin,Total 0.6 MG/DL (0.2-1.0); Calcium 8.7 MG/DL (8.5-10.1); Osmolality,Calculated 275.8 MOS/KG (273-304); Total Protein 5.9 G/DL (6.4-8.3)
[2020-10-31] MEDS: SODIUM CHLORIDE 0.9% 1,000 ML IV SCH (05:56)
[2020-10-31] MEDS ORDERED: MAGNESIUM CHLORIDE 64 MG TABLET PO ONE (06:34)
[2020-10-31] MEDS ORDERED: POTASSIUM CHLORIDE RIDER 10 MEQ in PREMIX 1 EACH IV PRN ×2 (06:36→07:21)
[2020-10-31] MEDS ORDERED: MAGNESIUM SULF RIDER 2 GM in PREMIX 1 EACH IV PRN (07:21)
[2020-10-31] MEDS ORDERED: DIAZEPAM 5 MG TABLET PO ONE (07:21)
[2020-10-31] MEDS ORDERED: methylPREDNISolone SOD SUC 125 MG/2 ML VIAL IV ONE (07:22)
[2020-10-31] MEDS ORDERED: diphenhydrAMINE 50 MG/1 ML VIAL IV ONE (07:22)
[2020-10-31] MEDS ORDERED: LIDOCAINE 1% 20 ML VIAL ONE (07:33)
[2020-10-31] MEDS: POTASSIUM CHLORIDE 20 MEQ TABLET PO PRN ×2 (07:41→16:52)
[2020-10-31] MEDS: APIXABAN 2.5 MG TABLET PO SCH ×3 (07:42→21:12)
[2020-10-31] MEDS: OLMESARTAN 20 MG TABLET PO SCH ×2 (07:42→10:31)
[2020-10-31] MEDS: ASPIRIN EC 81 MG TABLET PO SCH ×2 (07:42→10:32)
[2020-10-31] MEDS: carvediloL 3.125 MG TABLET PO SCH ×3 (07:44→21:11)
[2020-10-31] MEDS ORDERED: FAMOTIDINE 20 MG/2 ML VIAL IV ONE (07:53)
[2020-10-31] MEDS ORDERED: MIDAZOLAM 2 MG/2 ML VIAL ONE ×2 (07:58→09:28)
[2020-10-31] MEDS ORDERED: fentaNYL 100 MCG/2 ML VIAL ONE (07:58)
[2020-10-31] MEDS ORDERED: NITROGLYCERIN DRIP 50 MG/250 ML BOTTLE IV ONE (08:15)
[2020-10-31] MEDS ORDERED: VERAPAMIL 5 MG/2 ML VIAL ONE (08:16)
[2020-10-31] MEDS ORDERED: TIROFIBAN 5,000 MCG/100 ML PREMIX IV ONE (08:33)
[2020-10-31] MEDS ORDERED: TIROFIBAN 5,000 MCG/100 ML PREMIX IV SCH (08:38)
[2020-10-31] MEDS ORDERED: CLOPIDOGREL 300 MG TABLET ONE (08:54)
[2020-10-31] MEDS: FAMOTIDINE INJ 40 MG in SODIUM CHLORIDE 0.9% 100 ML IV SCH ×2 (10:29→18:34)
[2020-10-31] MEDS: FUROSEMIDE 40 MG/4 ML VIAL IV SCH ×2 (10:52→16:59)
[2020-10-31] MEDS: PANTOPRAZOLE 40 MG VIAL IV SCH (10:57)
[2020-10-31] MEDS: MULTIVITAMIN (CENTRUM) TABLET PO SCH (16:01)
[2020-10-31] MEDS: DOCUSATE SODIUM 100 MG CAPSULE PO SCH ×2 (16:01→21:11)
[2020-10-31] MEDS: LEVOFLOXACIN 500 MG TABLET PO SCH (16:51)
[2020-10-31] MEDS: MAGNESIUM CHLORIDE 64 MG TABLET PO SCH ×2 (16:51→21:12)
[2020-10-31] MEDS: ISOSORBIDE MONONITRATE 30 MG TABLET PO SCH (16:51)
[2020-10-31] MEDS: hydroCHLOROthiazide 25 MG TABLET PO SCH (16:51)
[2020-10-31] MEDS: ATORVASTATIN 40 MG TABLET PO SCH (21:12)
[2020-10-31] MEDS: ESCITALOPRAM 10 MG TABLET PO SCH (21:12)
[2020-10-31] MEDS: ACETAMINOPHEN 325 MG TABLET PO PRN (21:49)
[2020-11-01] MEDS: INSULIN REGULAR 100 UNIT/ML SUBCUT SCH ×4 (00:31→17:17)
[2020-11-01 05:40] LABS: Basophils % 0.1 % (0.0-0.8); Eosinophils % 0.2 % (0.00-10.9); Hematocrit 32.2 VOL% (35.7-47.0); Hemoglobin 10.9 GM/DL (12.0-16.0); Immature Granulocytes % 0.5 %; Immature Granulocytes Absolute 0.05 #; Lymphocytes % 9.7 % (21.3-54.2); Mean Corpuscular HGB Conc 33.9 GM/DL (32-36); Mean Platelet Volume 9.1 FL (9.6-12.0); Monocytes % 6.3 % (1.7-12.7); Neutrophils % 83.2 % (38.7-73.9); Platelet Count 168 T/CUMM (130-400); Red Blood Count 3.39 MC/CUMM (3.8-5.5); Red Cell Distribution Width 13.8 % (9.3-17.3); White Blood Count 10.7 T/CUMM (4-12)
[2020-11-01 06:11] LABS: Calcium 9.3 MG/DL (8.5-10.1)
[2020-11-01 06:26] LABS: Troponin I 0.509 NG/ML (0.00-0.045)
[2020-11-01] MEDS: LEVOFLOXACIN 500 MG TABLET PO SCH (08:21)
[2020-11-01] MEDS: ISOSORBIDE MONONITRATE 30 MG TABLET PO SCH (08:21)
[2020-11-01] MEDS: DOCUSATE SODIUM 100 MG CAPSULE PO SCH ×2 (08:21→20:17)
[2020-11-01] MEDS: CLOPIDOGREL 75 MG TABLET PO SCH (08:21)
[2020-11-01] MEDS: OLMESARTAN 20 MG TABLET PO SCH (08:22)
[2020-11-01] MEDS: MULTIVITAMIN (CENTRUM) TABLET PO SCH (08:22)
[2020-11-01] MEDS: MAGNESIUM CHLORIDE 64 MG TABLET PO SCH ×2 (08:22→20:20)
[2020-11-01] MEDS: carvediloL 3.125 MG TABLET PO SCH ×2 (08:22→20:20)
[2020-11-01] MEDS: PANTOPRAZOLE 40 MG VIAL IV SCH (08:22)
[2020-11-01] MEDS: hydroCHLOROthiazide 25 MG TABLET PO SCH (08:22)
[2020-11-01] MEDS: FUROSEMIDE 40 MG/4 ML VIAL IV SCH (08:24)
[2020-11-01] MEDS: SODIUM CHLORIDE 0.9% 1,000 ML IV SCH (08:33)
[2020-11-01] MEDS: FAMOTIDINE INJ 40 MG in SODIUM CHLORIDE 0.9% 100 ML IV SCH ×2 (08:34→21:12)
[2020-11-01] MEDS: APIXABAN 2.5 MG TABLET PO SCH ×2 (08:37→20:20)
[2020-11-01] MEDS: ACETAMINOPHEN 325 MG TABLET PO PRN ×2 (10:21→20:19)
[2020-11-01] MEDS: ONDANSETRON 4 MG/2 ML VIAL IV PRN ×2 (13:50→17:29)
[2020-11-01] MEDS: ALPRAZolam 0.5 MG TABLET PO PRN ×2 (14:02→20:17)
[2020-11-01] MEDS: ESCITALOPRAM 10 MG TABLET PO SCH (20:20)
[2020-11-01] MEDS: ATORVASTATIN 40 MG TABLET PO SCH (20:20)
[2020-11-02] MEDS: SODIUM CHLORIDE 0.9% 1,000 ML IV SCH (01:05)
[2020-11-02] MEDS: INSULIN REGULAR 100 UNIT/ML SUBCUT SCH ×4 (01:07→18:14)
[2020-11-02] MEDS: ACETAMINOPHEN 325 MG TABLET PO PRN (02:35)
[2020-11-02 06:50] LABS: Calcium 9.1 MG/DL (8.5-10.1); Osmolality,Calculated 272.2 MOS/KG (273-304)
[2020-11-02] MEDS ORDERED: HALOPERIDOL 5 MG/ML AMP IM ONE (08:10)
[2020-11-02] MEDS: MULTIVITAMIN (CENTRUM) TABLET PO SCH (09:11)
[2020-11-02] MEDS: MAGNESIUM CHLORIDE 64 MG TABLET PO SCH ×2 (09:11→22:39)
[2020-11-02] MEDS: DOCUSATE SODIUM 100 MG CAPSULE PO SCH ×2 (09:11→22:38)
[2020-11-02] MEDS: APIXABAN 2.5 MG TABLET PO SCH ×2 (09:11→22:38)
[2020-11-02] MEDS: ALPRAZolam 0.5 MG TABLET PO PRN ×2 (09:11→15:30)
[2020-11-02] MEDS: LEVOFLOXACIN 500 MG TABLET PO SCH (09:12)
[2020-11-02] MEDS: CLOPIDOGREL 75 MG TABLET PO SCH (09:12)
[2020-11-02] MEDS: ISOSORBIDE MONONITRATE 30 MG TABLET PO SCH (09:12)
[2020-11-02] MEDS: carvediloL 3.125 MG TABLET PO SCH ×2 (09:12→22:38)
[2020-11-02] MEDS: PANTOPRAZOLE 40 MG VIAL IV SCH (09:13)
[2020-11-02] MEDS: POTASSIUM CHLORIDE 20 MEQ TABLET PO PRN (09:13)
[2020-11-02] MEDS ORDERED: ALPRAZolam 0.5 MG TABLET PO SCH (21:00)
[2020-11-02] MEDS: ATORVASTATIN 40 MG TABLET PO SCH (22:38)
[2020-11-02] MEDS: ESCITALOPRAM 10 MG TABLET PO SCH (22:38)
[2020-11-02] MEDS: ALPRAZolam 0.5 MG TABLET PO SCH (22:40)
[2020-11-03] MEDS: INSULIN REGULAR 100 UNIT/ML SUBCUT SCH ×3 (02:40→11:27)
[2020-11-03 05:57] LABS: Calcium 9.1 MG/DL (8.5-10.1); Osmolality,Calculated 278.5 MOS/KG (273-304)
[2020-11-03] MEDS: LEVOFLOXACIN 500 MG TABLET PO SCH (08:31)
[2020-11-03] MEDS: MULTIVITAMIN (CENTRUM) TABLET PO SCH (08:31)
[2020-11-03] MEDS: DOCUSATE SODIUM 100 MG CAPSULE PO SCH (08:31)
[2020-11-03] MEDS: carvediloL 3.125 MG TABLET PO SCH (08:31)
[2020-11-03] MEDS: MAGNESIUM CHLORIDE 64 MG TABLET PO SCH (08:31)
[2020-11-03] MEDS: POTASSIUM CHLORIDE 20 MEQ TABLET PO PRN (08:31)
[2020-11-03] MEDS: ALPRAZolam 0.5 MG TABLET PO SCH (08:31)
[2020-11-03] MEDS: ISOSORBIDE MONONITRATE 30 MG TABLET PO SCH (08:31)
[2020-11-03] MEDS: APIXABAN 2.5 MG TABLET PO SCH (08:32)
[2020-11-03] MEDS: CLOPIDOGREL 75 MG TABLET PO SCH (08:32)
[2020-11-03] MEDS: PANTOPRAZOLE 40 MG VIAL IV SCH (08:35)
[2020-11-03] MEDS: ACETAMINOPHEN 325 MG TABLET PO PRN (11:24)
[2020-11-03 12:24] VITALS: BP 119/62
[2020-11-03] MEDS: ALPRAZolam 0.5 MG TABLET PO PRN (13:49)
[2020-11-03] MEDS ORDERED: INSULIN REGULAR 100 UNIT/ML SUBCUT SCH (16:30)
== END 2020-11-03 16:13 | disposition home health service (06) ==
LOC: EDUNIT# → EDBD → N.ED 01:44 → N.EDINP 01:44 → N.TELES 06:12
PROVIDERS: ADMIT Family Medicine; ATTEND Family Medicine
PROC: CLCCHCL (ICD-10-PCS; 2020-10-31 08:45)

== ENCOUNTER 2020-11-26 14:48 | Observation (INO) ==
[2020-11-26 16:06] LABS: Amorphous Crystals,Urine Occasional /HPF (Few); Bilirubin,Urine Negative (Negative); Blood, Urine Moderate mg/dL (Negative); Glucose,Urine (UA) Negative (Negative); Ketones,Urine Negative (Negative); Mucus,Urine Occasional /LPF (Occasional); Nitrite,Urine Negative (Negative); Protein,Urine Negative; RBC,Urine 11 /HPF (0-4); Squamous Epithelial Cell,Urine Occasional /HPF (0-10); Urine Appearance CLEAR (Clear); Urine Color Yellow (Yellow); Urine Specific Gravity 1.017 (1.001-1.035); Urine Urobilinogen < 2.0 EU/DL (0.2-1.0)
[2020-11-26 16:10] LABS: Basophils % 0.1 % (0.0-0.8); Eosinophils # 0.1 10*3/uL (0.0-0.87); Eosinophils % 0.3 % (0.00-10.9); Hematocrit 34.1 VOL% (35.7-47.0); Hemoglobin 11.5 GM/DL (12.0-16.0); Immature Granulocytes % 0.5 %; Immature Granulocytes Absolute 0.08 #; Lymphocytes # 0.9 10*3/uL (1.4-4.0); Lymphocytes % 6.2 % (21.3-54.2); Mean Corpuscular HGB Conc 33.7 GM/DL (32-36); Mean Corpuscular Volume 95.5 FL (87-102); Mean Platelet Volume 10.2 FL (9.6-12.0); Monocytes % 5.5 % (1.7-12.7); Neutrophils % 87.4 % (38.7-73.9); Platelet Count 139 T/CUMM (130-400); Red Blood Count 3.57 MC/CUMM (3.8-5.5); Red Cell Distribution Width 14.1 % (9.3-17.3); White Blood Count 14.8 T/CUMM (4-12)
[2020-11-26] MEDS ORDERED: FUROSEMIDE 40 MG/4 ML VIAL IV STA (16:28)
[2020-11-26] MEDS ORDERED: ONDANSETRON 4 MG/2 ML VIAL IV PRN (16:30)
[2020-11-26 16:33] LABS: Albumin 3.1 G/DL (3.4-5.0); Bilirubin,Total 1.4 MG/DL (0.2-1.0); Calcium 9.3 MG/DL (8.5-10.1); Osmolality,Calculated 269.4 MOS/KG (273-304); Total Protein 7.2 G/DL (6.4-8.3)
[2020-11-26] MEDS ORDERED: LEVOFLOXACIN INJ 500 MG in PREMIX 1 EACH IV STA (16:45)
[2020-11-26] MEDS: ALPRAZolam 0.5 MG TABLET PO PRN (21:40)
[2020-11-26] MEDS: ACETAMINOPHEN 325 MG TABLET PO PRN (21:40)
[2020-11-26] MEDS: DOCUSATE SODIUM 100 MG CAPSULE PO SCH (21:40)
[2020-11-26] MEDS: diphenhydrAMINE CAP 25 MG CAPSULE PO PRN (21:55)
[2020-11-27] MEDS: ACETAMINOPHEN 325 MG TABLET PO PRN ×2 (06:48→15:20)
[2020-11-27] MEDS ORDERED: NITROGLYCERIN SL 0.4 MG TABLET SL PRN (07:48)
[2020-11-27] MEDS ORDERED: traMADol 50 MG TABLET PO PRN (07:48)
[2020-11-27 08:34] LABS: Basophils % 0.2 % (0.0-0.8); Eosinophils # 0.1 10*3/uL (0.0-0.87); Eosinophils % 0.6 % (0.00-10.9); Hemoglobin 10.8 GM/DL (12.0-16.0); Immature Granulocytes % 0.4 %; Immature Granulocytes Absolute 0.05 #; Lymphocytes % 8.2 % (21.3-54.2); Mean Corpuscular HGB Conc 33.8 GM/DL (32-36); Monocytes % 5.4 % (1.7-12.7); Neutrophils % 85.2 % (38.7-73.9); Platelet Count 121 T/CUMM (130-400); Red Blood Count 3.37 MC/CUMM (3.8-5.5); Red Cell Distribution Width 13.9 % (9.3-17.3); White Blood Count 12.5 T/CUMM (4-12)
[2020-11-27 08:56] LABS: Albumin 2.8 G/DL (3.4-5.0); Bilirubin,Total 1.3 MG/DL (0.2-1.0); Calcium 9.2 MG/DL (8.5-10.1); Total Protein 6.5 G/DL (6.4-8.3)
[2020-11-27] MEDS ORDERED: CLOPIDOGREL 75 MG TABLET PO SCH (09:00)
[2020-11-27] MEDS ORDERED: carvediloL 3.125 MG TABLET PO SCH (09:00)
[2020-11-27] MEDS: PANTOPRAZOLE 40 MG TABLET PO SCH (09:08)
[2020-11-27] MEDS: MULTIVITAMIN (CENTRUM) TABLET PO SCH (09:08)
[2020-11-27] MEDS: DOCUSATE SODIUM 100 MG CAPSULE PO SCH ×2 (09:08→21:25)
[2020-11-27] MEDS: APIXABAN 2.5 MG TABLET PO SCH ×2 (09:09→21:24)
[2020-11-27] MEDS: diphenhydrAMINE CAP 25 MG CAPSULE PO PRN ×2 (10:09→21:25)
[2020-11-27] MEDS ORDERED: HYDROCORTISONE 1% OINT 28.35 GM TUBE TOP PRN (11:48)
[2020-11-27] MEDS: CETIRIZINE 10 MG TABLET PO SCH (13:50)
[2020-11-27] MEDS: POTASSIUM CHLORIDE 20 MEQ TABLET PO SCH ×2 (16:50→21:25)
[2020-11-27] MEDS: ESCITALOPRAM 10 MG TABLET PO SCH (21:24)
[2020-11-27] MEDS: ALPRAZolam 0.5 MG TABLET PO PRN (21:25)
[2020-11-28 05:47] LABS: Basophils % 0.2 % (0.0-0.8); Eosinophils # 0.1 10*3/uL (0.0-0.87); Eosinophils % 0.6 % (0.00-10.9); Hemoglobin 10.6 GM/DL (12.0-16.0); Immature Granulocytes % 0.5 %; Immature Granulocytes Absolute 0.04 #; Lymphocytes # 1.2 10*3/uL (1.4-4.0); Lymphocytes % 14.7 % (21.3-54.2); Mean Corpuscular HGB Conc 34.2 GM/DL (32-36); Mean Corpuscular Volume 95.4 FL (87-102); Mean Platelet Volume 10.4 FL (9.6-12.0); Monocytes % 5.3 % (1.7-12.7); Neutrophils % 78.7 % (38.7-73.9); Platelet Count 128 T/CUMM (130-400); Red Blood Count 3.25 MC/CUMM (3.8-5.5); Red Cell Distribution Width 13.9 % (9.3-17.3); White Blood Count 8.3 T/CUMM (4-12)
[2020-11-28 06:18] LABS: Calcium 8.8 MG/DL (8.5-10.1); Osmolality,Calculated 267.4 MOS/KG (273-304)
[2020-11-28 06:25] LABS: Albumin 2.6 G/DL (3.4-5.0); Bilirubin,Total 0.9 MG/DL (0.2-1.0); Ferritin 168.2 ng/ml (8-252); Osmolality,Calculated 259.9 MOS/KG (273-304); Thyroid Stimulating Hormone 2.02 uIU/ml (0.358-3.74); Total Protein 6.2 G/DL (6.4-8.3)
[2020-11-28] MEDS ORDERED: MAGNESIUM SULF RIDER 2 GM in PREMIX 1 EACH IV ONE (08:31)
[2020-11-28] MEDS ORDERED: TICAGRELOR 90 MG TABLET PO ONE (09:00)
[2020-11-28] MEDS: PANTOPRAZOLE 40 MG TABLET PO SCH (09:13)
[2020-11-28] MEDS: MULTIVITAMIN (CENTRUM) TABLET PO SCH (09:13)
[2020-11-28] MEDS: DOCUSATE SODIUM 100 MG CAPSULE PO SCH ×2 (09:13→21:12)
[2020-11-28] MEDS: POTASSIUM CHLORIDE 20 MEQ TABLET PO SCH ×2 (09:14→21:42)
[2020-11-28] MEDS: CETIRIZINE 10 MG TABLET PO SCH (09:14)
[2020-11-28] MEDS: NEBIVOLOL 5 MG TABLET PO SCH (09:14)
[2020-11-28] MEDS: ALPRAZolam 0.5 MG TABLET PO PRN ×2 (09:14→21:11)
[2020-11-28] MEDS: APIXABAN 2.5 MG TABLET PO SCH ×2 (09:14→21:12)
[2020-11-28] MEDS ORDERED: hydrOXYzine HCL 25 MG TABLET PO PRN (16:42)
[2020-11-28] MEDS: diphenhydrAMINE CAP 25 MG CAPSULE PO PRN (16:51)
[2020-11-28] MEDS: TICAGRELOR 90 MG TABLET PO SCH (21:12)
[2020-11-28] MEDS: ESCITALOPRAM 10 MG TABLET PO SCH (21:12)
[2020-11-29] MEDS ORDERED: HALOPERIDOL 5 MG/ML AMP IV PRN (04:33)
[2020-11-29] MEDS ORDERED: ALPRAZolam 0.5 MG TABLET PO PRN (04:39)
[2020-11-29 06:35] LABS: Eosinophils % 0.5 % (0.00-10.9); Immature Granulocytes % 0.5 %; Immature Granulocytes Absolute 0.04 #; Lymphocytes # 0.7 10*3/uL (1.4-4.0); Lymphocytes % 8.5 % (21.3-54.2); Mean Corpuscular HGB Conc 34.4 GM/DL (32-36); Mean Corpuscular Volume 95.2 FL (87-102); Monocytes % 4.4 % (1.7-12.7); Neutrophils % 86.1 % (38.7-73.9); Platelet Count 153 T/CUMM (130-400); Red Blood Count 3.36 MC/CUMM (3.8-5.5); Red Cell Distribution Width 13.7 % (9.3-17.3); White Blood Count 8.5 T/CUMM (4-12)
[2020-11-29 06:58] LABS: Calcium 9.1 MG/DL (8.5-10.1); Osmolality,Calculated 268.4 MOS/KG (273-304)
[2020-11-29] MEDS: MULTIVITAMIN (CENTRUM) TABLET PO SCH (08:42)
[2020-11-29] MEDS: DOCUSATE SODIUM 100 MG CAPSULE PO SCH (08:43)
[2020-11-29] MEDS: PANTOPRAZOLE 40 MG TABLET PO SCH (08:43)
[2020-11-29] MEDS: CETIRIZINE 10 MG TABLET PO SCH (08:43)
[2020-11-29] MEDS: APIXABAN 2.5 MG TABLET PO SCH (08:43)
[2020-11-29] MEDS: TICAGRELOR 90 MG TABLET PO SCH (08:43)
[2020-11-29] MEDS: POTASSIUM CHLORIDE 20 MEQ TABLET PO SCH (08:47)
[2020-11-29] MEDS: NEBIVOLOL 5 MG TABLET PO SCH (08:51)
[2020-11-29] MEDS ORDERED: methylPREDNISolone 4 MG TABLET PO SCH (09:00)
[2020-11-29] MEDS: ALPRAZolam 0.5 MG TABLET PO PRN (11:16)
[2020-11-29 12:12] VITALS: BP 157/63
== END 2020-11-29 12:42 | disposition home or self-care (01) ==
LOC: EDBD → EDUNIT# → N.ED 14:48 → N.EDINP 14:48 → N.TELEN 18:27
PROVIDERS: ADMIT Family Medicine; ATTEND Family Medicine

== ENCOUNTER 2021-01-08 14:34 | Observation (INO) ==
[2021-01-08] MEDS ORDERED: NITROGLYCERIN SL 0.4 MG TABLET SL ONE (15:06)
[2021-01-08] MEDS ORDERED: NITROGLYCERIN SL 0.4 MG TABLET SL PRN (15:06)
[2021-01-08 15:17] LABS: Basophils % 0.4 % (0.0-0.8); Eosinophils # 0.1 10*3/uL (0.0-0.87); Eosinophils % 1.7 % (0.00-10.9); Hematocrit 33.5 VOL% (35.7-47.0); Hemoglobin 10.7 GM/DL (12.0-16.0); Immature Granulocytes % 0.4 %; Immature Granulocytes Absolute 0.03 #; Lymphocytes # 1.2 10*3/uL (1.4-4.0); Lymphocytes % 16.9 % (21.3-54.2); Mean Corpuscular HGB Conc 31.9 GM/DL (32-36); Mean Corpuscular Volume 101.5 FL (87-102); Mean Platelet Volume 9.6 FL (9.6-12.0); Monocytes % 5.6 % (1.7-12.7); Platelet Count 161 T/CUMM (130-400); Red Cell Distribution Width 15.8 % (9.3-17.3); White Blood Count 7.2 T/CUMM (4-12)
[2021-01-08 15:40] LABS: Albumin 3.1 G/DL (3.4-5.0); Bilirubin,Total 1.1 MG/DL (0.2-1.0); Calcium 8.6 MG/DL (8.5-10.1); Osmolality,Calculated 284.8 MOS/KG (273-304); Potassium 3.1 MMOL/L (3.5-5.1); Total Protein 6.3 G/DL (6.4-8.3)
[2021-01-08 17:08] LABS: Bacteria,Urine Moderate /HPF (Few); Bilirubin,Urine Negative (Negative); Blood, Urine Large mg/dL (Negative); Glucose,Urine (UA) Negative (Negative); Ketones,Urine Negative (Negative); Mucus,Urine Few /LPF (Occasional); Nitrite,Urine Negative (Negative); Protein,Urine 30 MG/DL; RBC,Urine 53 /HPF (0-4); Urine Appearance CLOUDY (Clear); Urine Color Yellow (Yellow); Urine Specific Gravity 1.027 (1.001-1.035); Urine Urobilinogen < 2.0 EU/DL (0.2-1.0); WBC,Urine 20 /HPF (0-6)
[2021-01-08] MEDS ORDERED: ONDANSETRON 4 MG/2 ML VIAL IV PRN (21:23)
[2021-01-08] MEDS ORDERED: ACETAMINOPHEN 325 MG TABLET PO PRN (21:23)
[2021-01-08] MEDS ORDERED: ALPRAZolam 0.5 MG TABLET PO PRN (22:20)
[2021-01-08] MEDS ORDERED: CETIRIZINE 10 MG TABLET PO PRN (22:20)
[2021-01-08] MEDS ORDERED: ZALEPLON 5 MG CAPSULE PO PRN (22:22)
[2021-01-08] MEDS ORDERED: MAGNESIUM HYDROXIDE SUSP 30 ML UDCUP PO PRN (22:22)
[2021-01-08] MEDS: DOCUSATE SODIUM 100 MG CAPSULE PO SCH (22:46)
[2021-01-08] MEDS ORDERED: hydrALAZINE 20 MG/1 ML VIAL IV ONE (23:35)
[2021-01-08] MEDS ORDERED: hydrALAZINE 20 MG/1 ML VIAL IV PRN (23:36)
[2021-01-08] MEDS ORDERED: cloNIDine 0.1 MG TABLET PO PRN (23:37)
[2021-01-09 05:15] LABS: Basophils % 0.4 % (0.0-0.8); Eosinophils % 0.5 % (0.00-10.9); Hematocrit 29.5 VOL% (35.7-47.0); Hemoglobin 9.8 GM/DL (12.0-16.0); Immature Granulocytes % 0.5 %; Immature Granulocytes Absolute 0.04 #; Lymphocytes # 0.7 10*3/uL (1.4-4.0); Lymphocytes % 8.6 % (21.3-54.2); Mean Corpuscular HGB Conc 33.2 GM/DL (32-36); Mean Corpuscular Volume 98.7 FL (87-102); Mean Platelet Volume 9.8 FL (9.6-12.0); Monocytes % 4.6 % (1.7-12.7); Neutrophils % 85.4 % (38.7-73.9); Red Blood Count 2.99 MC/CUMM (3.8-5.5); Red Cell Distribution Width 15.9 % (9.3-17.3); White Blood Count 8.5 T/CUMM (4-12)
[2021-01-09 05:20] LABS: Platelet Count 120 T/CUMM (130-400)
[2021-01-09 05:35] LABS: Hypochromasia 1+; Microcytosis 1+
[2021-01-09 05:36] LABS: Platelet Estimate Adequate
[2021-01-09 05:48] LABS: Albumin 2.7 G/DL (3.4-5.0); Bilirubin,Total 1.1 MG/DL (0.2-1.0); Calcium 8.7 MG/DL (8.5-10.1); Potassium 3.1 MMOL/L (3.5-5.1); Risk Ratio 3.8; Thyroid Stimulating Hormone 0.923 uIU/ml (0.358-3.74)
[2021-01-09] MEDS ORDERED: NEBIVOLOL 5 MG TABLET PO SCH (09:00)
[2021-01-09] MEDS ORDERED: amLODIPine 5 MG TABLET PO SCH (09:00)
[2021-01-09] MEDS: TICAGRELOR 90 MG TABLET PO SCH ×2 (09:47→20:34)
[2021-01-09] MEDS: APIXABAN 2.5 MG TABLET PO SCH ×2 (09:47→20:33)
[2021-01-09] MEDS: POTASSIUM CHLORIDE 20 MEQ TABLET PO PRN ×4 (09:47→15:58)
[2021-01-09] MEDS: NEBIVOLOL 10 MG TABLET PO SCH (09:47)
[2021-01-09] MEDS: MULTIVITAMIN (CENTRUM) TABLET PO SCH (09:47)
[2021-01-09] MEDS: DOCUSATE SODIUM 100 MG CAPSULE PO SCH ×2 (09:47→20:34)
[2021-01-09] MEDS: PANTOPRAZOLE 40 MG TABLET PO SCH (09:47)
[2021-01-09] MEDS: LOSARTAN 25 MG TABLET PO SCH (10:01)
[2021-01-09] MEDS ORDERED: FUROSEMIDE 40 MG/4 ML VIAL IV ONE (10:33)
[2021-01-09] MEDS: POTASSIUM CHLORIDE RIDER 10 MEQ in PREMIX 1 EACH IV SCH (11:15)
[2021-01-09] MEDS ORDERED: ESCITALOPRAM 10 MG TABLET PO SCH (21:00)
[2021-01-10 06:15] LABS: Calcium 9.3 MG/DL (8.5-10.1); Osmolality,Calculated 274.5 MOS/KG (273-304); Potassium 3.5 MMOL/L (3.5-5.1)
[2021-01-10] MEDS: MULTIVITAMIN (CENTRUM) TABLET PO SCH (09:02)
[2021-01-10] MEDS: TICAGRELOR 90 MG TABLET PO SCH (09:02)
[2021-01-10] MEDS: PANTOPRAZOLE 40 MG TABLET PO SCH (09:02)
[2021-01-10] MEDS: APIXABAN 2.5 MG TABLET PO SCH (09:02)
[2021-01-10] MEDS: NEBIVOLOL 10 MG TABLET PO SCH (09:02)
[2021-01-10] MEDS: DOCUSATE SODIUM 100 MG CAPSULE PO SCH (09:02)
[2021-01-10] MEDS: LOSARTAN 25 MG TABLET PO SCH (09:02)
[2021-01-10] MEDS ORDERED: SPIRONOLACTONE 25 MG TABLET PO SCH (10:00)
[2021-01-10 11:53] LABS: Basophils % 0.4 % (0.0-0.8); Eosinophils # 0.1 10*3/uL (0.0-0.87); Eosinophils % 1.1 % (0.00-10.9); Hematocrit 34.2 VOL% (35.7-47.0); Hemoglobin 10.9 GM/DL (12.0-16.0); Immature Granulocytes % 0.6 %; Immature Granulocytes Absolute 0.05 #; Lymphocytes # 0.9 10*3/uL (1.4-4.0); Lymphocytes % 11.3 % (21.3-54.2); Mean Corpuscular HGB Conc 31.9 GM/DL (32-36); Mean Corpuscular Volume 102.4 FL (87-102); Mean Platelet Volume 9.9 FL (9.6-12.0); Monocytes % 4.7 % (1.7-12.7); Neutrophils % 81.9 % (38.7-73.9); Platelet Count 151 T/CUMM (130-400); Red Blood Count 3.34 MC/CUMM (3.8-5.5); Red Cell Distribution Width 15.8 % (9.3-17.3); White Blood Count 7.9 T/CUMM (4-12)
[2021-01-10 12:53] VITALS: BP 179/73
== END 2021-01-10 16:23 | disposition home or self-care (01) ==
LOC: EDBD → EDUNIT# → N.EDINP 14:34 → N.ED 14:34 → N.TELEN 19:38
PROVIDERS: ADMIT Family Medicine; ATTEND Family Medicine

== ENCOUNTER 2021-06-09 17:35 | Inpatient (IN) ==
[2021-06-09] MEDS ORDERED: SODIUM CHLORIDE 0.9% 500 ML IV STA (18:24)
[2021-06-09] MEDS ORDERED: ONDANSETRON 4 MG/2 ML VIAL IV STA (18:24)
[2021-06-09] MEDS ORDERED: MORPHINE 2 MG/1 ML SYRINGE IV STA (18:24)
[2021-06-09 19:48] LABS: Basophils % 0.2 % (0.0-0.8); Eosinophils # 0.1 10*3/uL (0.0-0.87); Eosinophils % 1.4 % (0.00-10.9); Hematocrit 34.4 VOL% (35.7-47.0); Hemoglobin 11.1 GM/DL (12.0-16.0); Immature Granulocytes % 0.5 %; Immature Granulocytes Absolute 0.04 #; Lymphocytes % 11.4 % (21.3-54.2); Mean Corpuscular HGB Conc 32.3 GM/DL (32-36); Mean Corpuscular Volume 101.2 FL (87-102); Mean Platelet Volume 10.4 FL (9.6-12.0); Monocytes % 3.2 % (1.7-12.7); Neutrophils % 83.3 % (38.7-73.9); Platelet Count 114 T/CUMM (130-400); Red Cell Distribution Width 14.6 % (9.3-17.3); White Blood Count 8.9 T/CUMM (4-12)
[2021-06-09 20:09] LABS: Albumin 3.3 G/DL (3.4-5.0); Bilirubin,Total 0.5 MG/DL (0.20-1.00); Potassium 4.2 MMOL/L (3.5-5.1); Total Protein 6.8 G/DL (6.4-8.2)
[2021-06-09 20:20] LABS: PT Patient Result 11.4 SECS (10.5-12.0)
[2021-06-09] MEDS ORDERED: DEXTROSE 50% 25 GM/50 ML VIAL IV PRN (22:23)
[2021-06-09] MEDS ORDERED: GLUCAGON 1 MG VIAL IM PRN (22:23)
[2021-06-09 22:40] LABS: Bilirubin,Urine Negative (Negative); Blood, Urine Small mg/dL (Negative); Glucose,Urine (UA) Negative (Negative); Hyaline Casts,Urine 6 /LPF (0-3); Ketones,Urine Negative (Negative); Nitrite,Urine Negative (Negative); Protein,Urine Negative; RBC,Urine 6 /HPF (0-4); Squamous Epithelial Cell,Urine Occasional /HPF (0-10); Urine Appearance CLEAR (Clear); Urine Color Yellow (Yellow); Urine Urobilinogen < 2.0 EU/DL (0.2-1.0)
[2021-06-09] MEDS: TICAGRELOR 90 MG TABLET PO SCH (23:04)
[2021-06-09] MEDS: ESCITALOPRAM 10 MG TABLET PO SCH (23:04)
[2021-06-09] MEDS: APIXABAN 2.5 MG TABLET PO SCH (23:04)
[2021-06-09] MEDS: DOCUSATE SODIUM 100 MG CAPSULE PO SCH (23:04)
[2021-06-10] MEDS: SODIUM CHLORIDE 0.9% 1,000 ML IV SCH (00:15)
[2021-06-10] MEDS: INSULIN REGULAR 100 UNIT/ML SUBCUT SCH ×4 (00:27→18:48)
[2021-06-10] MEDS: MORPHINE 2 MG/1 ML SYRINGE IV PRN ×3 (02:15→21:55)
[2021-06-10] MEDS: ONDANSETRON 4 MG/2 ML VIAL IV PRN ×2 (02:15→13:09)
[2021-06-10] MEDS: ACETAMINOPHEN 325 MG TABLET PO PRN ×2 (03:50→15:21)
[2021-06-10 05:03] LABS: Basophils % 0.3 % (0.0-0.8); Eosinophils # 0.1 10*3/uL (0.0-0.87); Eosinophils % 1.1 % (0.00-10.9); Hematocrit 33.8 VOL% (35.7-47.0); Hemoglobin 10.5 GM/DL (12.0-16.0); Immature Granulocytes % 0.4 %; Immature Granulocytes Absolute 0.03 #; Lymphocytes # 0.9 10*3/uL (1.4-4.0); Lymphocytes % 12.1 % (21.3-54.2); Mean Corpuscular HGB Conc 31.1 GM/DL (32-36); Mean Corpuscular Volume 102.4 FL (87-102); Mean Platelet Volume 11.1 FL (9.6-12.0); Monocytes % 3.9 % (1.7-12.7); Neutrophils % 82.2 % (38.7-73.9); Platelet Count 106 T/CUMM (130-400); Red Cell Distribution Width 14.5 % (9.3-17.3); White Blood Count 7.2 T/CUMM (4-12)
[2021-06-10 05:23] LABS: Albumin 3.1 G/DL (3.4-5.0); Calcium 9.1 MG/DL (8.5-10.1); Osmolality,Calculated 285.1 MOS/KG (273-304); Potassium 4.2 MMOL/L (3.5-5.1); Risk Ratio 3.29; Total Protein 6.4 G/DL (6.4-8.2)
[2021-06-10 06:05] LABS: Anisocytosis 2+; Macrocytosis 1+; Platelet Estimate Adequate
[2021-06-10 06:06] LABS: Tear Drop Cells Few
[2021-06-10] MEDS: TICAGRELOR 90 MG TABLET PO SCH ×2 (09:00→21:31)
[2021-06-10] MEDS: NEBIVOLOL 10 MG TABLET PO SCH (09:25)
[2021-06-10] MEDS: GABAPENTIN 100 MG CAPSULE PO SCH ×2 (09:26→15:21)
[2021-06-10] MEDS: APIXABAN 2.5 MG TABLET PO SCH ×2 (09:26→21:31)
[2021-06-10] MEDS: PANTOPRAZOLE 40 MG VIAL IV SCH (09:26)
[2021-06-10] MEDS: DOCUSATE SODIUM 100 MG CAPSULE PO SCH ×2 (09:26→21:31)
[2021-06-10] MEDS: ESCITALOPRAM 10 MG TABLET PO SCH (21:31)
[2021-06-10] MEDS: MIRTAZAPINE 15 MG TABLET PO SCH (21:31)
[2021-06-11] MEDS: INSULIN REGULAR 100 UNIT/ML SUBCUT SCH ×4 (00:15→18:37)
[2021-06-11] MEDS: MORPHINE 2 MG/1 ML SYRINGE IV PRN ×4 (02:22→23:24)
[2021-06-11] MEDS: SODIUM CHLORIDE 0.9% 1,000 ML IV SCH ×3 (03:41→23:28)
[2021-06-11 05:37] LABS: Basophils % 0.3 % (0.0-0.8); Eosinophils # 0.1 10*3/uL (0.0-0.87); Eosinophils % 1.8 % (0.00-10.9); Hematocrit 33.1 VOL% (35.7-47.0); Hemoglobin 10.3 GM/DL (12.0-16.0); Immature Granulocytes % 0.8 %; Immature Granulocytes Absolute 0.06 #; Lymphocytes # 1.1 10*3/uL (1.4-4.0); Lymphocytes % 13.5 % (21.3-54.2); Mean Corpuscular HGB Conc 31.1 GM/DL (32-36); Mean Corpuscular Volume 101.5 FL (87-102); Mean Platelet Volume 11.5 FL (9.6-12.0); Monocytes % 5.2 % (1.7-12.7); Neutrophils % 78.4 % (38.7-73.9); Platelet Count 100 T/CUMM (130-400); Red Blood Count 3.26 MC/CUMM (3.8-5.5); Red Cell Distribution Width 14.2 % (9.3-17.3); White Blood Count 7.9 T/CUMM (4-12)
[2021-06-11 05:52] LABS: Albumin 2.9 G/DL (3.4-5.0); Bilirubin,Total 1.5 MG/DL (0.20-1.00); Calcium 8.9 MG/DL (8.5-10.1); Osmolality,Calculated 284.3 MOS/KG (273-304); Potassium 4.1 MMOL/L (3.5-5.1); Total Protein 6.5 G/DL (6.4-8.2)
[2021-06-11 06:01] LABS: Hypochromasia 1+; Platelet Estimate Decreased
[2021-06-11] MEDS: NEBIVOLOL 10 MG TABLET PO SCH (10:02)
[2021-06-11] MEDS: DOCUSATE SODIUM 100 MG CAPSULE PO SCH ×2 (10:03→23:27)
[2021-06-11] MEDS: TICAGRELOR 90 MG TABLET PO SCH ×2 (10:03→23:27)
[2021-06-11] MEDS: GABAPENTIN 100 MG CAPSULE PO SCH ×2 (10:03→15:16)
[2021-06-11] MEDS: PANTOPRAZOLE 40 MG VIAL IV SCH (10:03)
[2021-06-11] MEDS: ESCITALOPRAM 10 MG TABLET PO SCH (23:27)
[2021-06-11] MEDS: MIRTAZAPINE 15 MG TABLET PO SCH (23:27)
[2021-06-12] MEDS: INSULIN REGULAR 100 UNIT/ML SUBCUT SCH ×4 (00:52→17:31)
[2021-06-12 06:29] LABS: Basophils % 0.3 % (0.0-0.8); Eosinophils # 0.2 10*3/uL (0.0-0.87); Eosinophils % 1.7 % (0.00-10.9); Hematocrit 33.5 VOL% (35.7-47.0); Hemoglobin 10.8 GM/DL (12.0-16.0); Immature Granulocytes % 0.4 %; Immature Granulocytes Absolute 0.04 #; Lymphocytes # 1.2 10*3/uL (1.4-4.0); Lymphocytes % 11.8 % (21.3-54.2); Mean Corpuscular HGB Conc 32.2 GM/DL (32-36); Mean Corpuscular Volume 101.2 FL (87-102); Mean Platelet Volume 11.5 FL (9.6-12.0); Monocytes % 7.2 % (1.7-12.7); Neutrophils % 78.6 % (38.7-73.9); Platelet Count 108 T/CUMM (130-400); Red Blood Count 3.31 MC/CUMM (3.8-5.5); Red Cell Distribution Width 14.3 % (9.3-17.3); White Blood Count 9.9 T/CUMM (4-12)
[2021-06-12 06:58] LABS: Hypochromasia 1+; Macrocytosis 1+
[2021-06-12 06:59] LABS: Platelet Estimate Adequate; Polychromasia Slight
[2021-06-12 07:06] LABS: Calcium 8.8 MG/DL (8.5-10.1); Osmolality,Calculated 283.3 MOS/KG (273-304); Potassium 3.8 MMOL/L (3.5-5.1); Thyroid Stimulating Hormone 2.23 uIU/ml (0.358-3.74)
[2021-06-12] MEDS: NEBIVOLOL 10 MG TABLET PO SCH (10:04)
[2021-06-12] MEDS: TICAGRELOR 90 MG TABLET PO SCH ×2 (10:05→22:54)
[2021-06-12] MEDS: ACETAMINOPHEN 325 MG TABLET PO PRN ×2 (10:05→17:30)
[2021-06-12] MEDS: GABAPENTIN 100 MG CAPSULE PO SCH ×2 (10:05→17:30)
[2021-06-12] MEDS: DOCUSATE SODIUM 100 MG CAPSULE PO SCH ×2 (10:06→22:53)
[2021-06-12] MEDS: PANTOPRAZOLE 40 MG VIAL IV SCH (10:06)
[2021-06-12] MEDS: SODIUM CHLORIDE 0.9% 1,000 ML IV SCH (12:53)
[2021-06-12 13:59] LABS: Basophils % 0.1 % (0.0-0.8); Eosinophils # 0.1 10*3/uL (0.0-0.87); Eosinophils % 1.6 % (0.00-10.9); Hematocrit 31.1 VOL% (35.7-47.0); Hemoglobin 9.9 GM/DL (12.0-16.0); Immature Granulocytes % 0.6 %; Immature Granulocytes Absolute 0.04 #; Lymphocytes # 0.7 10*3/uL (1.4-4.0); Lymphocytes % 9.9 % (21.3-54.2); Mean Corpuscular HGB Conc 31.8 GM/DL (32-36); Mean Corpuscular Volume 101.3 FL (87-102); Mean Platelet Volume 11.2 FL (9.6-12.0); Monocytes % 6.4 % (1.7-12.7); Neutrophils % 81.4 % (38.7-73.9); Platelet Count 97 T/CUMM (130-400); Red Blood Count 3.07 MC/CUMM (3.8-5.5); Red Cell Distribution Width 14.3 % (9.3-17.3); White Blood Count 6.8 T/CUMM (4-12)
[2021-06-12 14:16] LABS: Anisocytosis 1+; Platelet Estimate Decreased
[2021-06-12 14:17] LABS: Macrocytosis 1+
[2021-06-12 14:46] LABS: Calcium 8.3 MG/DL (8.5-10.1); Osmolality,Calculated 288.8 MOS/KG (273-304); Potassium 3.7 MMOL/L (3.5-5.1)
[2021-06-12] MEDS: MIRTAZAPINE 15 MG TABLET PO SCH (22:54)
[2021-06-12] MEDS: ESCITALOPRAM 10 MG TABLET PO SCH (22:54)
[2021-06-13] MEDS: INSULIN REGULAR 100 UNIT/ML SUBCUT SCH ×2 (00:12→06:56)
[2021-06-13] MEDS: ACETAMINOPHEN 325 MG TABLET PO PRN ×2 (00:16→08:57)
[2021-06-13] MEDS: SODIUM CHLORIDE 0.9% 1,000 ML IV SCH (03:22)
[2021-06-13 05:01] LABS: Basophils % 0.2 % (0.0-0.8); Eosinophils # 0.2 10*3/uL (0.0-0.87); Eosinophils % 3.4 % (0.00-10.9); Immature Granulocytes % 0.4 %; Immature Granulocytes Absolute 0.02 #; Lymphocytes # 0.7 10*3/uL (1.4-4.0); Lymphocytes % 12.8 % (21.3-54.2); Mean Corpuscular Volume 103.2 FL (87-102); Mean Platelet Volume 11.1 FL (9.6-12.0); Monocytes % 5.6 % (1.7-12.7); Neutrophils % 77.6 % (38.7-73.9); Platelet Count 91 T/CUMM (130-400); Red Blood Count 2.81 MC/CUMM (3.8-5.5); White Blood Count 5.6 T/CUMM (4-12)
[2021-06-13 05:28] LABS: Calcium 8.4 MG/DL (8.5-10.1); Osmolality,Calculated 289.7 MOS/KG (273-304); Potassium 3.7 MMOL/L (3.5-5.1)
[2021-06-13 05:39] LABS: Hypochromasia 1+
[2021-06-13 05:40] LABS: Macrocytosis 1+
[2021-06-13 05:41] LABS: Platelet Estimate Decreased; Polychromasia Slight
[2021-06-13 07:40] VITALS: BP 137/70
[2021-06-13] MEDS: GABAPENTIN 100 MG CAPSULE PO SCH (08:55)
[2021-06-13] MEDS: NEBIVOLOL 10 MG TABLET PO SCH (08:55)
[2021-06-13] MEDS: PANTOPRAZOLE 40 MG VIAL IV SCH (08:55)
[2021-06-13] MEDS: DOCUSATE SODIUM 100 MG CAPSULE PO SCH (08:55)
[2021-06-13] MEDS: TICAGRELOR 90 MG TABLET PO SCH (08:55)
== END 2021-06-13 11:14 | disposition swing bed (61) | DRG 536 ==
LOC: EDUNIT# → EDBD → N.ED 17:35 → N.EDINP 17:35 → N.5E 06-10 14:22
PROVIDERS: ADMIT Family Medicine; ATTEND Family Medicine